=== PATIENT | male | born 1945 | race Two or more races ===

== ENCOUNTER 2017-06-24 13:09 | Inpatient (IN) | payer MEDICARE ==
[2017-06-24] VITALS (10 sets, daily range): BP systolic 138–156; BP diastolic 76–86; PULSE 88–123; RESP 16–20; TEMP 100.1–102.8; O2SAT 94–98
[~2017-06-24] VITALS: Ht 172.7 cm; Wt 75.0 kg
--- NOTE | 2017-06-24 13:25 | PD ---
HPI Chief Complaint: Fall Time Seen by Provider: 13:24 Travel History International Travel<30 days: No Contact w/Intl Traveler<30days: No Traveled to known affect area: No History of Present Illness HPI 72-year-old male came to the emergency room with history of recurrent falls in past 4-6 hours. Patient says that he was at the park when he felt weak and fell. He was able to slowly get up and then drive himself back home. Once he got out of the car he fell again. This time the family members were staying with him noticed that he was on the floor and brought him in. And then just prior to coming in he fell again. Patient says he does not lose his consciousness. He just feels very weak and falls. This has not happened to him before. Patient thinks that this is because of high blood sugar although upon asking patient says his blood sugar was 118. Patient had slightly elevated temperature in triage. He says he has been coughing since yesterday. There has been some sick members in the family that he has had contact with. No history of vomiting or diarrhea. When he fell the first time he landed on his right hand and that swollen and hurting. Patient denies of any chest pain. No history of head injury PFSH Past Medical History Narrative Medical List of his past medical, surgical, social and family history is reviewed from the nursing note. Hx Anticoagulant Therapy: Yes Social History Tobacco Use: No Allergies-Medications (Allergen,Severity, Reaction): Coded Allergies: No Known Allergies (Verified Allergy, Unknown, 06/24/17) Comments no known drug allergies Reported Meds & Prescriptions Reported Meds & Active Scripts Active Reported Tradjenta (Linagliptin) 5 Mg Tab 5 Mg PO DAILY Atorvastatin (Atorvastatin Calcium) 20 Mg Tab 20 Mg PO HS Amlodipine (Amlodipine Besylate) 10 Mg Tab 10 Mg PO DAILY Benazepril (Benazepril HCl) 20 Mg Tab 20 Mg PO DAILY Metformin (Metformin HCl) 1,000 Mg Tab 1,000 Mg PO BIDPC Narrative Medication List of his home medications reviewed from the nursing note. Review of Systems Except as stated in HPI: all other systems reviewed are Neg Physical Exam Narrative GENERAL: Awake, alert, moderate distress, slightly lethargic SKIN: Focused skin assessment warm/dry. Right hand swollen over the fifth metacarpal area and tender HEAD: Atraumatic. Normocephalic. EYES: Pupils equal and round. No scleral icterus. No injection or drainage. ENT: No nasal bleeding or discharge. Mucous membranes pink and moist. NECK: Trachea midline. No JVD. CARDIOVASCULAR: Regular rate and rhythm. No murmur appreciated. RESPIRATORY: No accessory muscle use. Coarse crackles on the left lung area. GASTROINTESTINAL: Abdomen soft, non-tender, nondistended. Hepatic and splenic margins not palpable. MUSCULOSKELETAL: No obvious deformities. No clubbing. No cyanosis. No edema. NEUROLOGICAL: Awake and alert but slightly lethargic. No obvious cranial nerve deficits. Motor grossly within normal limits. Normal speech. PSYCHIATRIC: Appropriate mood and affect; insight and judgment normal. Data Data Last Documented VS Orders Orders Sepsis Workup Initiated (06/24/17 ) Complete Blood Count With Diff (06/24/17 13:39) Comprehensive Metabolic Panel (06/24/17 13:39) Lactic Acid Sepsis Protocol (06/24/17 13:39) Urinalysis - C+S If Indicated (06/24/17 13:39) Influenzae A/B Antigen (06/24/17 13:39) Blood Culture (06/24/17 13:39) Chest, Single Ap (06/24/17 13:39) Blood Glucose (06/24/17 13:39) Ecg Monitoring (06/24/17 13:39) Iv Access Insert/Monitor (06/24/17 13:39) Oximetry (06/24/17 13:39) Oxygen Administration (06/24/17 13:39) Ct Brain W/O Iv Contrast(Rout) (06/24/17 13:39) Sodium Chlor 0.9% 1000 Ml Inj (Ns 1000 M (06/24/17 13:39) Sodium Chlor 0.9% 1000 Ml Inj (Ns 1000 M (06/24/17 13:39) Sodium Chlor 0.9% 1000 Ml Inj (Ns 1000 M (06/24/17 13:39) Hand, Complete ([id number]) (06/24/17 ) Albuterol Neb (Albuterol Neb) (06/24/17 15:15) Support Splint (06/24/17 15:08) Piperacil-Tazo 4.5 Gm Premix (Zosyn 4.5 (06/24/17 15:15) Vancomycin Inj (Vancomycin Inj) (06/24/17 15:15) Ct Thorax/ Chest Wo Iv Contras (06/24/17 ) Admit Order (Ed Use Only) (06/24/17 16:50) Labs Laboratory Tests Test 06/24/17 14:30 06/24/17 14:45 White Blood Count 8.4 TH/MM3 Red Blood Count 5.06 MIL/MM3 Hemoglobin 14.4 GM/DL Hematocrit 43.9 % Mean Corpuscular Volume 86.7 FL Mean Corpuscular Hemoglobin 28.4 PG Mean Corpuscular Hemoglobin Concent 32.8 % Red Cell Distribution Width 12.9 % Platelet Count 201 TH/MM3 Mean Platelet Volume 7.7 FL Neutrophils (%) (Auto) 84.6 % Lymphocytes (%) (Auto) 5.4 % Monocytes (%) (Auto) 9.3 % Eosinophils (%) (Auto) 0.3 % Basophils (%) (Auto) 0.4 % Neutrophils # (Auto) 7.1 TH/MM3 Lymphocytes # (Auto) 0.5 TH/MM3 Monocytes # (Auto) 0.8 TH/MM3 Eosinophils # (Auto) 0.0 TH/MM3 Basophils # (Auto) 0.0 TH/MM3 CBC Comment DIFF FINAL Differential Comment Blood Urea Nitrogen 15 MG/DL Creatinine 1.00 MG/DL Random Glucose 156 MG/DL Total Protein 8.7 GM/DL Albumin 3.9 GM/DL Calcium Level 9.0 MG/DL Alkaline Phosphatase 70 U/L Aspartate Amino Transf (AST/SGOT) 17 U/L Alanine Aminotransferase (ALT/SGPT) 20 U/L Total Bilirubin 0.3 MG/DL Sodium Level 135 MEQ/L Potassium Level 3.8 MEQ/L Chloride Level 104 MEQ/L Carbon Dioxide Level 21.7 MEQ/L Anion Gap 9 MEQ/L Estimat Glomerular Filtration Rate 73 ML/MIN Lactic Acid Level 2.2 mmol/L Urine Collection Type CATH Urine Color YELLOW Urine Turbidity CLEAR Urine pH 5.5 Urine Specific [place] 1.019 Urine Protein 30 mg/dL Urine Glucose (UA) 100 mg/dL Urine Ketones TRACE mg/dL Urine Occult Blood MOD Urine Nitrite NEG Urine Bilirubin NEG Urine Leukocyte Esterase NEG Urine RBC 0-3 /hpf Urine Squamous Epithelial Cells 0-5 /hpf Urine Amorphous Sediment FEW Microscopic Urinalysis Comment CATH-CULT NOT IND Urine Collection Time 1445 MDM Medical Decision Making Medical Screen Exam Complete: Yes Emergency Medical Condition: Yes Medical Record Reviewed: Yes Differential Diagnosis Sepsis, dehydration, abnormal electrolytes, pneumonia, UTI Narrative Course 4:26 PM blood test results are back and patient's lactic acid is elevated. CT scan of the head was negative. Chest x-ray showed some left apical density in the radiologist recommended a CT scan. I ordered a CT scan which is done but waiting to be read. Patient has been given IV Zosyn and vancomycin. I put a call out for the hospitalist to admit him. Critical Care Narrative Aggregate critical care time was 30 minutes. Time to perform other separately billable procedures was not included in the critical care time. My time did not include minutes spent treating any other patients simultaneously or on activities that did not directly contribute to the patient's treatment. The services I provided to this patient were to treat and/or prevent clinically significant deterioration that could result in: Sepsis, sepsis protocol I provided critical care services requiring my management, as noted below: Chart data review, documentation time, medication orders and management, vital sign assessments/reviewing monitor data, ordering and reviewing lab tests, ordering and interpreting/reviewing x-rays and diagnostic studies, care of the patient and discussion of the patient with the admitting physicians. Procedures EKG Prior to Arrival: No Diagnosis Primary Impression: Altered mental status Qualified Codes: R40.0 - Somnolence Additional Impressions: Sepsis Qualified Codes: A41.9 - Sepsis, unspecified organism Fall Qualified Codes: W19.XXXA - Unspecified fall, initial encounter Metacarpal bone fracture Qualified Codes: S62.356A - Nondisplaced fracture of shaft of fifth metacarpal bone, right hand, initial encounter for closed fracture Lung mass Admitting Information Admitting Physician Requests: Admit Scripts Hydrocodone/Acetaminophen (Hydrocodone-Acetamin 5-325 mg) 5 Mg-325 Mg Tablet 1 TAB PO Q6H Y for moderate and severe pain, #20 TAB 0 Refills Prov: Brynn Palmer MD 06/27/17 Randy Rome MD Jun 24, 2017 13:24
[2017-06-24] MEDS ORDERED: SODIUM CHLOR 0.9% 1000 ML INJ 400 ML IV ONE (13:39)
[2017-06-24] MEDS ORDERED: SODIUM CHLOR 0.9% 1000 ML INJ 1,000 ML IV ONE ×2 (13:39)
[2017-06-24] MEDS ORDERED: BLOOD PRESSURE PO (13:43)
[2017-06-24] MEDS ORDERED: METF1000 PO (13:43)
[2017-06-24] MEDS ORDERED: AMLO10TA2 PO (13:54)
[2017-06-24] MEDS ORDERED: BENA20TA PO (13:54)
[2017-06-24] MEDS ORDERED: ATOR20TA15 PO (13:54)
[2017-06-24] MEDS ORDERED: TRAD5TAB PO (13:55)
--- NOTE | 2017-06-24 14:24 | RADRPT ---
EXAM DATE/TIME: 06/24/2017 13:53 [facility] COMPARISON: No previous studies available for comparison. INDICATIONS : Altered mental status. 3 falls today. Unsteady gate. RADIATION DOSE: 59.65 CTDIvol (mGy) ; Patient motion MEDICAL HISTORY : Hypertension. Diabetes mellitus type 2. SURGICAL HISTORY : Appendectomy. ENCOUNTER: Initial ACUITY: 1 day PAIN SCALE: 0/10 LOCATION: cranial TECHNIQUE: Multiple contiguous axial images were obtained of the head. Using automated exposure control and adj ustment of the mA and/or kV according to patient size, radiation dose was kept as low as reasonably a chievable to obtain optimal diagnostic quality images. DICOM format image data is available electro nically for review and comparison. FINDINGS: CEREBRUM: The ventricles and cortical sulci are mildly widened. There is mild decreased density of the short wh ite matter especially the frontal lobes. No evidence of midline shift, mass lesion, hemorrhage or ac christopher infarction. No extra-axial fluid collections are seen. POSTERIOR FOSSA: The cerebellum and brainstem are intact. The 4th ventricle is midline. The cerebellopontine angle i s unremarkable. EXTRACRANIAL: The visualized portion of the orbits is intact. SKULL: The calvaria is intact. No evidence of skull fracture. CONCLUSION: 1. No acute abnormality seen. 2. Age-related atrophy and suspected mild small vessel ischemic change in the white matter. Jules Warren MD on June 24, 2017 at 14:20 Board Certified Radiologist. This report was verified electronically.
[2017-06-24 14:44] LABS: AUTOMATED NEUTROPHIL # 7.1 TH/MM3 (1.8-7.7); BASOPHIL % 0.4 % (0.0-2.0); EOSINOPHIL % 0.3 % (0.0-4.0); HEMATOCRIT 43.9 % (39.0-51.0); HEMOGLOBIN 14.4 GM/DL (13.0-17.0); LYMPH % 5.4 % (9.0-44.0); LYMPHOCYTE # 0.5 TH/MM3 (1.0-4.8); MEAN CELL VOLUME 86.7 FL (80.0-100.0); MEAN CORPUSCULAR HEMOGLOBIN 28.4 PG (27.0-34.0); MEAN CORPUSCULAR HGB CONC 32.8 % (32.0-36.0); MEAN PLATELET VOLUME 7.7 FL (7.0-11.0); MONO % 9.3 % (0.0-8.0); MONOCYTE # 0.8 TH/MM3 (0-0.9); NEUT % 84.6 % (16.0-70.0); PLATELET COUNT 201 TH/MM3 (150-450); RED BLOOD COUNT 5.06 MIL/MM3 (4.50-5.90); RED CELL DISTRIBUTION WIDTH 12.9 % (11.6-17.2); WHITE BLOOD COUNT 8.4 TH/MM3 (4.0-11.0)
--- NOTE | 2017-06-24 14:51 | RADRPT ---
EXAM DATE/TIME: 06/24/2017 14:07 [facility] COMPARISON: No previous studies available for comparison. INDICATIONS : Cough, frequent falls today. MEDICAL HISTORY : Hypertension. Diabetes mellitus type II. SURGICAL HISTORY : Appendectomy. ENCOUNTER: Initial ACUITY: 2 days PAIN SCORE: 0/10 LOCATION: Bilateral chest FINDINGS: The heart size is normal. The lungs are free of focal consolidation. There is a possible mass seen in the right upper lung. No effusion is seen. CONCLUSION: 1. No acute abnormality is seen. 2. Possible mass in the right upper lung. This could be further evaluated with a noncontrast CT exami nation of the chest. Jules Warren MD on June 24, 2017 at 14:48 Board Certified Radiologist. This report was verified electronically.
--- NOTE | 2017-06-24 14:52 | RADRPT ---
EXAM DATE/TIME: 06/24/2017 14:07 [facility] COMPARISON: No previous studies available for comparison. INDICATIONS : Right hand pain after falling today. MEDICAL HISTORY : Hypertension. Diabetes mellitus type II. SURGICAL HISTORY : Appendectomy. ENCOUNTER: Initial ACUITY: 1 day PAIN SCORE: 7/10 LOCATION: Right top of hand. FINDINGS: There is a fracture at the proximal aspect of the fifth metacarpal. No other fracture is seen. The mima alejandra appear osteopenic. CONCLUSION: Fifth metacarpal fracture. Jules Warren MD on June 24, 2017 at 14:49 Board Certified Radiologist. This report was verified electronically.
[2017-06-24 14:53] LABS: CHLORIDE 104 MEQ/L (98-107); SODIUM (NA) 135 MEQ/L (136-145)
[2017-06-24 14:57] LABS: ALBUMIN 3.9 GM/DL (3.4-5.0); BICARBONATE 21.7 MEQ/L (21.0-32.0); BLOOD UREA NITROGEN 15 MG/DL (7-18); GLUCOSE,RANDOM 156 MG/DL (74-106)
[2017-06-24 15:00] LABS: ALT (GPT) 20 U/L (12-78); AST (GOT) 17 U/L (15-37); GLOMERULAR FILTRATION RATE 73 ML/MIN (>89)
[2017-06-24 15:01] LABS: TOTAL BILIRUBIN ADULT 0.3 MG/DL (0.2-1.0); TOTAL PROTEIN 8.7 GM/DL (6.4-8.2)
[2017-06-24 15:02] LABS: LACTIC ACID SEPSIS PROTOCOL 2.2 mmol/L (0.4-2.0)
[2017-06-24 15:03] LABS: ALKALINE PHOSPHATASE 70 U/L (45-117)
[2017-06-24 15:12] LABS: BILIRUBIN, URINE NEG (NEG); BLOOD, URINE MOD (NEG); GLUCOSE,URINE 100 mg/dL (NEG); KETONE, URINE TRACE mg/dL (NEG); NITRITE,URINE NEG (NEG); PH, URINE 5.5 (5.0-8.5); URINE LEUKOCYTE ESTERASE NEG (NEG)
[2017-06-24] MEDS ORDERED: VANCOMYCIN INJ 1,000 MG in SODIUM CHLOR 0.9% 250 ML INJ 250 ML IV ONE (15:15)
[2017-06-24] MEDS ORDERED: RESP: ALBUTEROL 2.5 MG/3 ML NEB (SCH) NEB ONE (15:15)
[2017-06-24] MEDS ORDERED: PIPERACIL-TAZO 4.5 GM PREMIX 100 ML IV ONE (15:15)
[2017-06-24 15:17] LABS: URINE COLOR YELLOW (YELLW/STRAW)
[2017-06-24 15:18] LABS: AMORPHOUS SEDIMENT, URINE FEW; RBC, URINE 0-3 /hpf (0-3); SQUAMOUS EPITHELIAL CELL URINE 0-5 /hpf (0-5)
--- NOTE | 2017-06-24 16:27 | RADRPT ---
EXAM DATE/TIME: 06/24/2017 15:48 [facility] COMPARISON: 3 days PAIN SCALE: 4/10 LOCATION: chest TECHNIQUE: Volumetric scanning of the chest was performed. Using automated exposure control and adjustment of t he mA and/or kV according to patient size, radiation dose was kept as low as reasonably achievable to obtain optimal diagnostic quality images. DICOM format image data is available electronically for r eview and comparison. Follow-up recommendations for detected pulmonary nodules are based at a minimum on nodule size and pa tient risk factors according to Fleischner Society Guidelines. FINDINGS: There is an approximate 1.3 cm spiculated mass in right upper lobe in the apex suspicious for maligna ncy. Coronary artery calcifications are seen typically seen with CAD and need to be evaluated clinica lly. Approximate 9 mm spontaneously dense nodule is present in the left kidney probably complicated c ysts. There is mild thoracic scoliosis convexity towards the right. There is no pleural effusion. No appreciable pathological adenopathy is seen within the mediastinum. There are old healed rib fractur es in the right lower chest. CONCLUSION: Right upper lung nodule suspicious for malignancy. Roque Patel MD on June 24, 2017 at 16:21 Board Certified Radiologist. This report was verified electronically.
[2017-06-24] MEDS ORDERED: SODIUM CHLORIDE 0.9% FLUSH 10 ML FLUSH IV FLUSH PRN (17:45)
[2017-06-24] MEDS ORDERED: RESP: ALBUTEROL 2.5 MG/IPRATROPIUM 0.5 MG NEB (PRN) INH (17:45)
[2017-06-24] MEDS ORDERED: ENOXAPARIN SODIUM 40 MG/0.4 ML SYRINGE SQ SCH (18:00)
[2017-06-24] MEDS ORDERED: AZITHROMYCIN INJ 500 MG in SODIUM CHLOR 0.9% 250 ML INJ 250 ML IV SCH (18:00)
[2017-06-24] MEDS ORDERED: GLUCAGON 1 MG/ML VIAL OTHER PRN (18:15)
[2017-06-24] MEDS ORDERED: DEXTROSE 50% IN WATER 50 ML VIAL(D50) IV PUSH PRN (18:15)
--- NOTE | 2017-06-24 18:38 | HHI.HP ---
HPI Service [facility] Primary Care Physician No Primary Care Physician Admission Diagnosis sepsis, fall, metacarpal fracture, lung mass Diagnoses: Chief Complaint: Fall at home and new fever Travel History International Travel<30 Days: No Contact w/Intl Traveler <30 Da: No Traveled to Known Affected Are: No History of Present Illness This patient is a 72-year-old gentleman with diabetes and hypertension. He does not have a primary doctor. Apparently today he was at the park walking his dog and fell. He got up in complaining of some hand pain and drove himself home. He went home and fell again, his called his niece who came and they noticed that he was still weak and wobbly. He did not lose consciousness and had no chest pain or prodromal symptoms. She just felt acutely and severely weak and is giving out. Patient seen in the hospital here with shuffling gait which is unusual for the patient, weak and fatigued. He says that he has not had any recent travel and has not hit his head. He's never had this before. We 'll a fall earlier was so dramatic that he did end up with metacarpal fracture which has since been splinted by the ER Deid[facility]. On arrival in emergency room he is febrile with tachycardia and signs of sepsis. He has been treated empirically with antibiotics as well as a recommendation for evaluation of a new right upper lobe malignancy with nodule on CT. Review of Systems Constitutional: COMPLAINS OF: Fatigue, Fever, Chills Endocrine: DENIES: Heat/cold intolerance, Polydipsia, Polyuria, Polyphagia Eyes: DENIES: Blurred vision, Diplopia, Eye inflammation, Eye pain, Vision loss , Photosensitivity, Double Vision Ears, nose, mouth, throat: DENIES: Tinnitus, Hearing loss, Vertigo, Nasal discharge, Oral lesions, Throat pain, Hoarseness, Ear Pain, Running Nose, Epistaxis, Sinus Pain, Toothache, Odynophagia Respiratory: DENIES: Apneas, Cough, Snoring, Wheezing, Hemoptysis, Sputum production, Shortness of breath Cardiovascular: DENIES: Chest pain, Palpitations, Syncope, Dyspnea on Exertion , PND, Lower Extremity Edema, Orthopnea, Claudication Gastrointestinal: DENIES: Abdominal pain, Black stools, Bloody stools, Constipation, Diarrhea, Nausea, Vomiting, Difficulty Swallowing, Anorexia Genitourinary: DENIES: Sexual dysfunction, Urinary frequency, Urinary incontinence, Urgency, Hematuria, Dysuria, Nocturia, Penile Discharge, Testicular Pain, Testicular Swelling Musculoskeletal: DENIES: Joint pain, Muscle aches, Stiffness, Joint Swelling, Back pain, Neck pain Integumentary: DENIES: Abnormal pigmentation, Nail changes, Pruritus, Rash Hematologic/lymphatic: DENIES: Bruising, Lymphadenopathy Immunologic/allergic: DENIES: Eczema, Urticaria Neurologic: COMPLAINS OF: Abnormal gait, DENIES: Headache, Localized weakness, Paresthesias, Seizures, Speech Problems, Tremor, Poor Balance Psychiatric: DENIES: Anxiety, Confusion, Mood changes, Depression, Hallucinations, Agitation, Suicidal Ideation, Homicidal Ideation, Delusions Except as stated in HPI: all other systems reviewed are Neg Past Family Social History Past Medical History Diabetes Hypertension Hyperlipidemia Past Surgical History Appendectomy Reported Medications Reviewed in the EMR Allergies: Coded Allergies: No Known Allergies (Verified Allergy, Unknown, 06/24/17) Active Ordered Medications Reviewed in the EMR Family History Family history of hypertension Social History No tobacco or alcohol dependency, lives with his , very independent Physical Exam Vital Signs Vital Signs Date Time Temp Pulse Resp B/P (MAP) Pulse Ox O2 Delivery O2 Flow Rate FiO2 06/24/17 17:44 96 21 06/24/17 13:55 100.1 06/24/17 13:44 96 Room Air 06/24/17 13:44 18 96 Room Air 06/24/17 13:44 Room Air 06/24/17 13:14 100.1 123 16 150/86 (107) 95 Physical Exam GENERAL: This is a frail gentleman who is weak and appears stated age SKIN: No rashes, ecchymoses or lesions. Cool and dry. HEAD: Atraumatic. Normocephalic. No temporal or scalp tenderness. EYES: Pupils equal round and reactive. Extraocular motions intact. No scleral icterus. No injection or drainage. ENT: Nose without bleeding, purulent drainage or septal hematoma. Throat without erythema, tonsillar hypertrophy or exudate. Uvula midline. Airway patent. NECK: Trachea midline. No JVD or lymphadenopathy. Supple, nontender, no meningeal signs. CARDIOVASCULAR: Regular rate and rhythm without murmurs, gallops, or rubs. RESPIRATORY: Clear to auscultation. Breath sounds equal bilaterally. No wheezes , rales, or rhonchi. GASTROINTESTINAL: Abdomen soft, non-tender, nondistended. No hepato-splenomegaly , or palpable masses. No guarding. MUSCULOSKELETAL: Show full gait, Extremities without clubbing, cyanosis, or edema. No joint tenderness, effusion, or edema noted. No calf tenderness. Negative Homans sign bilaterally. NEUROLOGICAL: Awake and alert. Cranial nerves II through XII intact. Motor and sensory grossly within normal limits. Five out of 5 muscle strength in all muscle groups. Normal speech. Laboratory Laboratory Tests Test 06/24/17 14:30 06/24/17 14:45 06/24/17 17:15 White Blood Count 8.4 Red Blood Count 5.06 Hemoglobin 14.4 Hematocrit 43.9 Mean Corpuscular Volume 86.7 Mean Corpuscular Hemoglobin 28.4 Mean Corpuscular Hemoglobin Concent 32.8 Red Cell Distribution Width 12.9 Platelet Count 201 Mean Platelet Volume 7.7 Neutrophils (%) (Auto) 84.6 Lymphocytes (%) (Auto) 5.4 Monocytes (%) (Auto) 9.3 Eosinophils (%) (Auto) 0.3 Basophils (%) (Auto) 0.4 Neutrophils # (Auto) 7.1 Lymphocytes # (Auto) 0.5 Monocytes # (Auto) 0.8 Eosinophils # (Auto) 0.0 Basophils # (Auto) 0.0 CBC Comment DIFF FINAL Differential Comment Blood Urea Nitrogen 15 Creatinine 1.00 Random Glucose 156 Total Protein 8.7 Albumin 3.9 Calcium Level 9.0 Alkaline Phosphatase 70 Aspartate Amino Transf (AST/SGOT) 17 Alanine Aminotransferase (ALT/SGPT) 20 Total Bilirubin 0.3 Sodium Level 135 Potassium Level 3.8 Chloride Level 104 Carbon Dioxide Level 21.7 Anion Gap 9 Estimat Glomerular Filtration Rate 73 Lactic Acid Level 2.2 2.0 Urine Collection Type CATH Urine Color YELLOW Urine Turbidity CLEAR Urine pH 5.5 Urine Specific [place] 1.019 Urine Protein 30 Urine Glucose (UA) 100 Urine Ketones TRACE Urine Occult Blood MOD Urine Nitrite NEG Urine Bilirubin NEG Urine Leukocyte Esterase NEG Urine RBC 0-3 Urine Squamous Epithelial Cells 0-5 Urine Amorphous Sediment FEW Microscopic Urinalysis Comment CATH-CULT NOT IND Urine Collection Time 1445 Date/Time Source Procedure Growth Status 06/24/17 14:35 Blood Peripheral Aerobic Blood Culture Pending Received 06/24/17 14:35 Blood Peripheral Anaerobic Blood Culture Pending Received 06/24/17 14:35 Nasal Aspirate Influenza Types A,B Antigen (KYLEIGH) - Final NEGATIVE FOR FLU A AND B ANTIGEN.... Complete Result Diagram: 06/24/17 1430 06/24/17 1430 Imaging Last [address] 06/24/17 1339 Signed Impressions: Service Date/Time: Saturday, June 24, 2017 13:53 - CONCLUSION: 1. No acute abnormality seen. 2. Age-related atrophy and suspected mild small vessel ischemic change in the white matter. Jules Warren MD Chest X-Ray 06/24/17 1339 Signed Impressions: Service Date/Time: Saturday, June 24, 2017 14:07 - CONCLUSION: 1. No acute abnormality is seen. 2. Possible mass in the right upper lung. This could be further evaluated with a noncontrast CT examination of the chest. Jules Warren MD Hand X-Ray 06/24/17 0000 Signed Impressions: Service Date/Time: Saturday, June 24, 2017 14:07 - CONCLUSION: Fifth metacarpal fracture. Jules Warren MD Chest CT 06/24/17 0000 Signed Impressions: Service Date/Time: Saturday, June 24, 2017 15:48 - CONCLUSION: Right upper lung nodule suspicious for malignancy. Roque Patel MD Septic Shock Reassessment Septic shock perfusion: reassessment completed Caprini VTE Risk Assessment Caprini VTE Risk Assessment: Mod/High Risk (score >= 2) Caprini Risk Assessment Model Point Value = 1 Point Value = 2 Point Value = 3 Point Value = 5 Age 41-60 Minor surgery BMI > 25 kg/m2 Swollen legs Varicose veins or History of unexplained or recurrent spontaneous Oral contraceptives or hormone replacement Sepsis (< 1 month) Serious lung disease, including pneumonia (< 1 month) Abnormal pulmonary function Acute myocardial infarction Congestive heart failure (< 1 month) History of inflammatory bowel disease Medical patient at bed rest Age 61-74 Arthroscopic surgery Major open surgery (> 45 min) Laparoscopic surgery (> 45 min) Malignancy Confined to bed (> 72 hours) Immobilizing plaster cast Central venous access Age >= 75 History of VTE Family history of VTE Factor V Leiden Prothrombin [id number] Lupus anticoagulant Anticardiolipin antibodies Elevated serum homocysteine Heparin-induced thrombocytopenia Other congenital or acquired thrombophilia Stroke (< 1 month) Elective arthroplasty Hip, pelvis, or leg fracture Acute spinal cord injury (< 1 month) Prophylaxis Regimen Total Risk Factor Score Risk Level Prophylaxis Regimen 0-1 Low Early ambulation 2 Moderate Order ONE of the following: *Sequential Compression Device (SCD) *Heparin 5000 units SQ BID 3-4 Higher Order ONE of the following medications: *Heparin 5000 units SQ TID *Enoxaparin/Lovenox 40 mg SQ daily (WT < 150 kg, CrCl > 30 mL/min) *Enoxaparin/Lovenox 30 mg SQ daily (WT < 150 kg, CrCl > 10-29 mL/min) *Enoxaparin/Lovenox 30 mg SQ BID (WT < 150 kg, CrCl > 30 mL/min) AND/OR *Sequential Compression Device (SCD) 5 or more Highest Order ONE of the following medications: *Heparin 5000 units SQ TID (Preferred with Epidurals) *Enoxaparin/Lovenox 40 mg SQ daily (WT < 150 kg, CrCl > 30 mL/min) *Enoxaparin/Lovenox 30 mg SQ daily (WT < 150 kg, CrCl > 10-29 mL/min) *Enoxaparin/Lovenox 30 mg SQ BID (WT < 150 kg, CrCl > 30 mL/min) AND *Sequential Compression Device (SCD) Assessment and Plan Problem List: (1) Fall ICD Code: W19.XXXA - Unspecified fall, initial encounter Status: Acute Plan: With acute gait abnormality, rule out stroke, continue treatment for sepsis MRI pending CT of the head unremarkable (2) Lung mass ICD Code: R91.8 - Other nonspecific abnormal finding of lung field Status: Acute Plan: New per patient, workup in progress (3) Sepsis ICD Code: A41.9 - Sepsis, unspecified organism Status: Acute Plan: Possibly from pneumonia, etiology unclear, continue empiric azithromycin and Rocephin Urine negative, blood cultures pending (4) Metacarpal bone fracture ICD Code: S62.309A - Unspecified fracture of unspecified metacarpal bone, initial encounter for closed fracture Status: Acute Plan: Continue supportive care with splint, follow up with outpatient hand surgery Physician Certification 2 Midnight Certification Type: Admission for Inpatient Services Order for Inpatient Services The services are ordered in accordance with Medicare regulations or non- Medicare payer requirements, as applicable. In the case of services not specified as inpatient-only, they are appropriately provided as inpatient services in accordance with the 2-midnight benchmark. Estimated LOS (days): 4 4 days is the estimated time the patient will need to remain in the hospital, assuming treatment plan goals are met and no additional complications. Post-Hospital Plan: Not yet determined Problem Qualifiers (1) Fall: Qualified Codes: W19.XXXA - Unspecified fall, initial encounter (2) Sepsis: Qualified Codes: A41.9 - Sepsis, unspecified organism (3) Metacarpal bone fracture: Qualified Codes: S62.356A - Nondisplaced fracture of shaft of fifth metacarpal bone, right hand, initial encounter for closed fracture Radha Cox MD Jun 24, 2017 18:37
[2017-06-24] MEDS: ACETAMINOPHEN 325 MG TAB PO PRN (18:43)
[2017-06-24] MEDS ORDERED: cefTRIAXone INJ 1,000 MG in SODIUM CHLORIDE 0.9% INJ 100 ML IV SCH (20:00)
[2017-06-24] MEDS ORDERED: ACETAMINOPHEN/HYDROcodone 325 MG/5 MG TAB PO PRN (20:30)
[2017-06-24] MEDS: INSULIN ASPART SUPPLEMENTAL SCALE SQ SCH (21:00)
[2017-06-24] MEDS: ATORVASTATIN 20 MG TAB PO SCH (21:22)
[2017-06-24] MEDS: SODIUM CHLORIDE 0.9% FLUSH 10 ML FLUSH IV FLUSH SCH (21:22)
[2017-06-24] MEDS: ACETAMINOPHEN/HYDROcodone 325 MG/7.5 MG TAB PO PRN (21:23)
[2017-06-25] VITALS: BP 122/79; PULSE 93; RESP 16; TEMP 98.9; O2SAT 92
[2017-06-25 01:30] VITALS: O2SAT 93
[2017-06-25] MEDS: ACETAMINOPHEN/HYDROcodone 325 MG/7.5 MG TAB PO PRN (03:51)
[2017-06-25 05:39] LABS: AUTOMATED NEUTROPHIL # 5.6 TH/MM3 (1.8-7.7); BASOPHIL % 0.3 % (0.0-2.0); EOSINOPHIL % 0.1 % (0.0-4.0); HEMATOCRIT 39.5 % (39.0-51.0); HEMOGLOBIN 13.1 GM/DL (13.0-17.0); LYMPH % 4.4 % (9.0-44.0); LYMPHOCYTE # 0.3 TH/MM3 (1.0-4.8); MEAN CELL VOLUME 86.7 FL (80.0-100.0); MEAN CORPUSCULAR HEMOGLOBIN 28.8 PG (27.0-34.0); MEAN CORPUSCULAR HGB CONC 33.3 % (32.0-36.0); MEAN PLATELET VOLUME 7.9 FL (7.0-11.0); MONO % 8.7 % (0.0-8.0); MONOCYTE # 0.6 TH/MM3 (0-0.9); NEUT % 86.5 % (16.0-70.0); PLATELET COUNT 188 TH/MM3 (150-450); RED BLOOD COUNT 4.56 MIL/MM3 (4.50-5.90); WHITE BLOOD COUNT 6.5 TH/MM3 (4.0-11.0)
[2017-06-25 05:52] LABS: BICARBONATE 21.7 MEQ/L (21.0-32.0); CALCIUM 8.1 MG/DL (8.5-10.1); CREATININE 0.88 MG/DL (0.60-1.30)
[2017-06-25 08:00] VITALS: BP 167/87; PULSE 91; RESP 16; TEMP 98.3; O2SAT 93
[2017-06-25] MEDS ORDERED: BENZOCAINE-MENTHOL (SUGAR FREE) 15 MG-3.6 MG LOZENGE BUCCAL PRN (08:45)
[2017-06-25] MEDS: LISINOPRIL 20 MG TAB PO SCH (08:52)
[2017-06-25] MEDS: SODIUM CHLORIDE 0.9% FLUSH 10 ML FLUSH IV FLUSH SCH ×2 (08:52→20:16)
[2017-06-25] MEDS: INSULIN ASPART SUPPLEMENTAL SCALE SQ SCH ×4 (08:52→20:17)
[2017-06-25] MEDS ORDERED: TRADJENTA 5 MG PO SCH (09:00)
--- NOTE | 2017-06-25 10:55 | HHI.PR ---
Subjective Remarks Patient seen today in follow-up for sepsis, fall and lightheadedness. More confused today. MAXIMUM TEMPERATURE 100.2. Care plan discussed with nursing team Objective Vitals Vital Signs Date Time Temp Pulse Resp B/P (MAP) Pulse Ox O2 Delivery O2 Flow Rate FiO2 06/25/17 08:00 98.3 91 16 167/87 (113) 93 06/25/17 04:51 16 06/25/17 01:30 93 21 06/25/17 00:00 98.9 93 16 122/79 (93) 92 06/24/17 19:43 18 06/24/17 18:40 100.2 119 20 138/84 (102) 96 06/24/17 18:00 84 16 155/82 (106) 98 06/24/17 17:44 96 21 06/24/17 17:15 102.8 99 16 153/82 (105) 94 Room Air 06/24/17 16:15 97 18 155/76 (102) 98 Room Air 06/24/17 15:15 88 16 156/79 (104) 94 Room Air 06/24/17 14:15 92 18 156/76 (102) 98 Room Air 06/24/17 13:55 100.1 06/24/17 13:44 96 Room Air 06/24/17 13:44 18 96 Room Air 06/24/17 13:44 Room Air 06/24/17 13:14 100.1 123 16 150/86 (107) 95 I/O 06/24/17 06/24/17 06/24/17 06/25/17 06/25/17 06/25/17 07:00 15:00 23:00 07:00 15:00 23:00 Intake Total 2850 ml 180 ml Output Total 250 ml Balance 2850 ml 180 ml -250 ml Intake Oral 180 ml IV Total 2850 ml Output Urine Total 250 ml # Voids 3 1 # Bowel Movements 0 Result Diagram: 06/25/177 06/25/17446 Imaging Last Impressions Head CT 06/24/171338 Signed Impressions: Service Date/Time: Saturday, June 24, 2017 13:53 - CONCLUSION: 1. No acute abnormality seen. 2. Age-related atrophy and suspected mild small vessel ischemic change in the white matter. Jules Warren MD Chest X-Ray 06/24/17 1339 Signed Impressions: Service Date/Time: Saturday, June 24, 2017 14:07 - CONCLUSION: 1. No acute abnormality is seen. 2. Possible mass in the right upper lung. This could be further evaluated with a noncontrast CT examination of the chest. Jules Warren MD Hand X-Ray 06/24/17 0000 Signed Impressions: Service Date/Time: Saturday, June 24, 2017 14:07 - CONCLUSION: Fifth metacarpal fracture. Jules Warren MD Chest CT 06/24/17 0000 Signed Impressions: Service Date/Time: Saturday, June 24, 2017 15:48 - CONCLUSION: Right upper lung nodule suspicious for malignancy. Roque Patel MD Objective Remarks GENERAL: This is a well-nourished, weak CARDIOVASCULAR: Regular rate and rhythm without murmurs, gallops, or rubs. RESPIRATORY: Upper respiratory gurgling, no wheezes GASTROINTESTINAL: Abdomen soft, non-tender, nondistended. Normal active bowel sounds MUSCULOSKELETAL: Right arm splint, Extremities without clubbing, cyanosis, or edema. NEURO: Alert & Oriented x4 to person, place, time, situation. Moves all ext x4 but very weak A/P Problem List: (1) Fall ICD Code: W19.XXXA - Unspecified fall, initial encounter Status: Acute Plan: With acute gait abnormality, rule out stroke, continue treatment for sepsis MRI brain pending CT of the head unremarkable (2) Lung mass ICD Code: R91.8 - Other nonspecific abnormal finding of lung field Status: Acute Plan: New per patient, workup in progress pulm consult approximate 1.3 cm spiculated mass in right upper lobe,may be incidental no tobacco or hx of ca (3) Sepsis ICD Code: A41.9 - Sepsis, unspecified organism Status: Acute Plan: Possibly from pneumonia (although unclear), etiology unclear, continue empiric azithromycin and Rocephin Urine negative, blood cultures pending CSF, EEG pending Neuro eval (4) Metacarpal bone fracture ICD Code: S62.309A - Unspecified fracture of unspecified metacarpal bone, initial encounter for closed fracture Status: Acute Plan: Continue supportive care with fiberglass splint, follow up with outpatient hand surgery (5) Metabolic encephalopathy ICD Code: G93.41 - Metabolic encephalopathy Plan: Patient appears to be septic follow-up from an unclear source, medications reviewed Antibiotic suggested for possible meningitis Problem Qualifiers (1) Fall: Qualified Codes: W19.XXXA - Unspecified fall, initial encounter (2) Sepsis: Qualified Codes: A41.9 - Sepsis, unspecified organism (3) Metacarpal bone fracture: Qualified Codes: S62.356A - Nondisplaced fracture of shaft of fifth metacarpal bone, right hand, initial encounter for closed fracture Radha Cox MD Jun 25, 2017 10:55
[2017-06-25] MEDS ORDERED: VANCOMYCIN INJ 1,250 MG in SODIUM CHLOR 0.9% 250 ML INJ 250 ML IV SCH (11:00)
[2017-06-25] MEDS ORDERED: Vancomycin Consult Pharmacy 1 EA OTHER SCH (11:00)
[2017-06-25] MEDS: cefTRIAXone INJ 1,000 MG in SODIUM CHLORIDE 0.9% INJ 100 ML IV SCH ×2 (11:53→23:06)
[2017-06-25 12:00] VITALS: BP 157/88; PULSE 108; RESP 20; TEMP 97.4; O2SAT 93
[2017-06-25 12:09] LABS: PROTHROMBIN TIME - PATIENT 10.6 SEC (9.8-11.6)
[2017-06-25] MEDS: VANCOMYCIN 1,000 MG/NS 250 ML IV SCH ×2 (12:52)
--- NOTE | 2017-06-25 14:32 | MB ---
cc: PATY CASTILLO M.D. DATE OF CONSULTATION 06/25/2017 REASON FOR CONSULTATION A 72-year-old Occitan-speaking man with a history of falls and lethargy and he is apparently running a fever as well. HISTORY OF PRESENT ILLNESS The patient was walking his dog yesterday, fell, and was able to get up and drive back home. Apparently at home he fell again and was very weak. He was brought to the hospital. In the hospital his family tells me that he has been having some wobbly and shuffling gait lately. No apparent confusion and no blackouts. They deny seizures and stroke. He is diabetic and also has a history of hypertension. He takes baby aspirin along with diabetes and blood pressure medications. He has been coughing up in the past few days. NEUROLOGICAL EXAMINATION Exam showed the patient to be awake, somewhat lethargic, coughing intermittently and obviously congested. He follows commands. He is oriented in a gross manner as he is speaking with difficulty. He appears to be dysarthric with generalized weakness and encephalopathy. He is moving all four extremities grossly equally. The right distal upper extremity is immobilized but he is moving the fingers one by one. He has some reflexes present at the elbows and knees, absent at the ankles and plantar response is probably flexor. IMAGING CT brain was negative for acute process. LABORATORY CBC is showing normal white count, hemoglobin and platelets also normal. Chemistry is showing sodium 135 yesterday, today 137. Potassium 3.8 yesterday. Blood sugar yesterday 156, BUN and creatinine normal. ASSESSMENT AND RECOMMENDATIONS resumed sepsis. He is encephalopathic with some lethargy and generalized weakness. There is somewhat dysarthric speech. He is showing no focal findings on the neurologic exam. He is scheduled for an MRI brain. There is a plan for a lumbar puncture. I doubt a meningoencephalitis type of process, but would agree with the lumbar puncture. Currently on ceftriaxone, vancomycin and Zithromax. I will follow the neurological course. Thank you for asking us to assist in his care. MD JENNIFER Cruz/MILA /1:25 PM /2:00 PM
--- NOTE | 2017-06-25 16:02 | RADRPT ---
EXAM DATE/TIME: 06/25/2017 14:14 [facility] COMPARISON: No previous studies available for comparison. INDICATIONS : CVA. Frequent falls. Unsteady gait. MEDICAL HISTORY : Hypertension. Diabetes mellitus type 2. SURGICAL HISTORY : None. ENCOUNTER: Subsequent ACUITY: 2 day PAIN SCORE: 0/10 LOCATION: head. TECHNIQUE: Multiplanar, multisequence MRI of the brain was performed without contrast. FINDINGS: MRI of the brain is performed in sagittal, axial and coronal planes. The craniocervical junction and midline structures are unremarkable. Diffusion weighted images demonstrate no abnormality. There is n o evidence of acute cortical infarction, acute hemorrhage, mass effect or midline shift is seen. Ther e is periventricular hyperintensity on the T2 weighted images consistent with small vessel vascular d isease slightly more than expected in a patient of this age. Posterior fossa structures are unremarka ble. CONCLUSION: 1. No evidence of acute intracranial pathology. Chronic ischemic changes as above. Arthur Johnson MD on June 25, 2017 at 15:59 Board Certified Radiologist. This report was verified electronically.
[2017-06-25 16:31] VITALS: BP 166/94; PULSE 102; RESP 19; TEMP 98.7; O2SAT 92
[2017-06-25] MEDS: AZITHROMYCIN 250 MG TAB PO SCH (18:15)
--- NOTE | 2017-06-25 19:01 | MB ---
cc: ROHAN ALFORD DATE OF CONSULTATION 06/25/[address] Radha Cox REASON FOR CONSULTATION Evaluation of lung nodule. HISTORY OF THE PRESENT ILLNESS Mr. Cancino is a 72-year-old male with a history of hypertension, diabetes mellitus. The patient has a history of fall. He said he fell twice. He went to walk his dog and fell down but no loss of consciousness. He was able to get up and drive home. He presented to [facility] with a fall. He had a workup done. He had a CT scan of the chest done which showed that he has a right upper lobe lung nodule measuring 1.3 cm, spiculated, concerning for malignancy. He had a MRI of the brain done which showed no evidence of acute intracranial pathology. He has chronic ischemic changes. The patient is being seen by Dr. Nicholas Saldivar and he is going to go for a spinal tap. PAST MEDICAL HISTORY 1. Hypertension. 2. Diabetes mellitus. MEDICATIONS He is currently takin. Vancomycin IV. 2. Rocephin 1 gram q.12 h. 3. Amlodipine 10 mg. 4. Lisinopril 20 mg a day. 5. Cepacol lozenges. ALLERGIES NO KNOWN DRUG ALLERGIES. SOCIAL HISTORY He is . 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 No history of smoking or alcoholism. He has no children. His nephew and nieces are at the bedside. REVIEW OF SYSTEMS Normally he is up, around and active and takes care of his and himself. No seizure, stroke. No DVT or pulmonary embolism. No malignancy. PHYSICAL EXAMINATION GENERAL: Elderly male, not in any acute distress. VITAL SIGNS: His blood pressure 157/88, heart rate 108, respiratory rate 20, temperature 97.4. HEENT: Pupils are equal and reactive to light. Oral mucosa and nasal mucosa normal. NECK: Supple. JVP not raised. CHEST: Air entry equal bilaterally. No rhonchi. CARDIOVASCULAR: S1-S2 normal. ABDOMEN: Soft. Nondistended. Bowel sounds are present. EXTREMITIES: No edema. His right hand is in a cast. LABORATORY DATA WBC count 6.5, hemoglobin 13.1, hematocrit 39.6, MCV 86, platelet count 188. Sodium 137, chloride 105, CO2 21, BUN 10. Creatinine 0.88. IMAGING His x-ray of the hand shows fifth metacarpal fracture. IMPRESSION 1. 1.3 cm right upper lobe nodule concerning for malignancy. 2. Encephalopathy. 3. History of fall. 4. Hypertension. 5. Diabetes mellitus. 6. Right fifth metacarpal fracture. PLAN I discussed with the patient, his and nephew and niece at the bedside the patient is scheduled for CT-guided biopsy of the lung. We will continue antibiotic. Neurological workup is underway. Further treatment will depend on the course in the hospital. Thank you Dr. Radha Cox for this consultation. MD JESUS Dean/KRISTINE /6:03 PM /6:14 PM
[2017-06-25 20:00] VITALS: BP 161/91; PULSE 101; RESP 20; TEMP 100.2; O2SAT 92
[2017-06-25] MEDS: ATORVASTATIN 20 MG TAB PO SCH (20:16)
[2017-06-25] MEDS: ACETAMINOPHEN 325 MG TAB PO PRN (23:09)
[2017-06-26] VITALS (11 sets, daily range): BP systolic 113–147; BP diastolic 81–93; PULSE 81–111; RESP 17–20; TEMP 97.1–99.4; O2SAT 93–98
[2017-06-26] MEDS: VANCOMYCIN 1,000 MG/NS 250 ML IV SCH ×4 (00:16→14:39)
[2017-06-26] MEDS ORDERED: CHLORHEXIDINE GLUCONATE 2 % 1 PACK (2 CLOTHS) TOPICAL PRN (01:30)
[2017-06-26] MEDS ORDERED: POVIDONE IODINE 5% (ANTISEPSIS KIT) 4 APPLICATIONS EACH NARE PRN (01:30)
[2017-06-26] MEDS ORDERED: LACTATED RINGER'S 1000 ML IV PRN (01:30)
[2017-06-26] MEDS ORDERED: SODIUM CHLORID 0.9% 500 ML IV PRN (01:30)
[2017-06-26 06:07] LABS: CREATININE 1.07 MG/DL (0.60-1.30)
[2017-06-26] MEDS: LISINOPRIL 20 MG TAB PO SCH (07:58)
[2017-06-26] MEDS: SODIUM CHLORIDE 0.9% FLUSH 10 ML FLUSH IV FLUSH SCH ×2 (07:58→22:01)
[2017-06-26] MEDS: INSULIN ASPART SUPPLEMENTAL SCALE SQ SCH ×4 (07:58→22:04)
--- NOTE | 2017-06-26 09:28 | EKG ---
Date Performed: 06/26/2017 Time Performed: 07:17:27 PTAGE: 72 years EKG: Sinus rhythm NONSPECIFIC T-WAVE ABNORMALITY BORDERLINE ECG NO PREVIOUS TRACING DOCTOR: Alfa Archer Interpretating Date/Time 06/26/2017 09:28:12
[2017-06-26] MEDS ORDERED: LIDOCAINE HCL 1% 20 ML VIAL ONE (09:43)
[2017-06-26] MEDS ORDERED: INFLUENZA VIRUS VACCINE (QUADRIVALENT) 0.5 ML SYR IM ONE (10:00)
[2017-06-26] MEDS ORDERED: PNEUMOCOCCAL POLYVALENT INJ 25 MCG/0.5 ML SYR IM ONE (10:00)
[2017-06-26] MEDS ORDERED: MIDAZOLAM HCL 2 MG/2 ML VIAL ONE (10:04)
--- NOTE | 2017-06-26 11:56 | RADRPT ---
EXAM DATE/TIME: 06/26/2017 11:20 [facility] COMPARISON: No previous studies available for comparison. INDICATIONS : Post lung biopsy. MEDICAL HISTORY : None. SURGICAL HISTORY : None. ENCOUNTER: Initial ACUITY: 1 day PAIN SCORE: Non-responsive. LOCATION: Right chest FINDINGS: There is no evidence of pneumothorax status post right lung biopsy. Some patchiness is noted within t he right upper lung field likely related to post biopsy hemorrhage. The heart is mildly prominent. Th e left lung is clear. CONCLUSION: 1. No evidence of pneumothorax status post right lung biopsy. 2. Some patchiness within the right upper lung field likely related to post biopsy hemorrhage. Pablo Flores MD on June 26, 2017 at 11:52 Board Certified Radiologist. This report was verified electronically.
[2017-06-26 13:01] LABS: BICARBONATE 23.4 MEQ/L (21.0-32.0); CALCIUM 8.9 MG/DL (8.5-10.1); CREATININE 0.97 MG/DL (0.60-1.30); MAGNESIUM 2.1 MG/DL (1.5-2.5)
--- NOTE | 2017-06-26 13:14 | RADRPT ---
EXAM DATE/TIME: 06/26/2017 10:24 [facility] COMPARISON: No previous studies available for comparison. INDICATIONS : Right lung mass. SEDATION TIME: 30 minutes BIOPSY SITE: Right posterior chest. MEDICATION(S): 1.) 1.5 mg midazolam (Versed) IV 2.) 75 mcg fentanyl (Sublimaze) IV DEVICE(S): 1.) 19 gauge micropuncture introducer 2.) 20 gauge Temno core biopsy needle MEDICAL HISTORY : Hypertension. Diabetes mellitus type 2. SURGICAL HISTORY : Appendectomy. ENCOUNTER: Initial ACUITY: 1 day PAIN SCORE: 0/10 LOCATION: Right chest A total of two core specimen(s) were obtained and sent to the laboratory for pathologic evaluation. PROCEDURE: 1. CT guided lung biopsy. Prior to the procedure informed consent was obtained. Any appropriate prior imaging studies were rev iewed. Using automated exposure control and adjustment of the mA and/or kV according to patient size, radiation dose was kept as low as reasonably achievable to obtain optimal diagnostic quality images. DICOM format image data is available electronically for review and comparison. The site was prepped in a sterile fashion. Full sterile technique was used, including cap, mask, nicole rile gloves and gown and a large sterile sheet. Hand hygiene and 2% chlorhexidine and/or betadine/al cohol prep was utilized per protocol for cutaneous antisepsis. The skin and subcutaneous tissues wer e infiltrated with local anesthetic solution. With CT guidance the previously identified target was localized. Biopsy was performed using the presc ribed needle as above. Adequate hemostasis was obtained with compression at the puncture site. Follow-up CT scan reveals no pneumothorax. Conscious sedation was performed with the prescribed dosages and duration as above in the presence of an independent trained radiology nurse to assist in the monitoring of the patient. EKG and oximetry remained stable throughout the procedure. The patient tolerated the procedure well and there were no complications. The patient was sent to Radiology Outpatient Unit in stable condition. CONCLUSION: Uncomplicated CT guided biopsy. Pablo Flores MD on June 26, 2017 at 13:12 Board Certified Radiologist. This report was verified electronically.
--- NOTE | 2017-06-26 13:23 | MB ---
cc: MEAGAN NARAYANAN MD DATE OF CONSULTATION 06/26/[address] Cox REASON Sepsis. HISTORY OF PRESENT ILLNESS This is a 72-year-old male who presented to the emergency department after several falls. The patient fractured his right wrist during the fall. He reportedly felt very weak and was falling. He was brought by family for evaluation. He was found to have a temperature of 100.1 degrees and elevated heart rate. The patient was evaluated and found to have a right upper lung nodule. His temperature daniela to 102 degrees on the evening of 06/24/2017 and cultures were taken including blood and sputum. A blood culture has no growth in two days. The sputum culture has immature growth. The urinalysis was unremarkable and therefore urine culture was not performed. He was put on antibiotics. His temperature has improved. White blood cell count has remained normal. The patient was transferred here to [place] from [facility] yesterday. He underwent biopsy of the lung nodule and sample was sent for pathology. He reportedly had decreased mental status yesterday evening. However today his mentation is extremely clear. He was able to converse with me freely. He was seen by Neurology yesterday. He was noted to be somewhat lethargic yesterday evening. The patient just came back from the biopsy of the lung. He has a small amount of hemoptysis. He denies headaches, chills, nausea or shortness of breath. He has family members in the room who state that he looks better them. PAST MEDICAL HISTORY 1. Hypertension. 2. Diabetes mellitus. 3. Hyperlipidemia. 4. History of appendectomy. ALLERGIES No known drug allergies. MEDICATIONS 1. Zithromax. 2. Vancomycin. 3. Ceftriaxone. 4. Norvasc. 5. Prinivil. 6. Insulin. 7. Lipitor. 8. [place] 5 p.r.n. SOCIAL HISTORY The patient is . No tobacco. The patient reportedly drinks wine red wine daily. No illicit drugs. FAMILY HISTORY Noncontributory. REVIEW OF SYSTEMS GENERAL: Significant for fever. HEAD, EARS, NOSE AND THROAT: No visual blurring or difficulty with vision. No nasal bleed. No difficulty swallowing. No soreness of the throat. RESPIRATORY: Denies cough or shortness of breath. CARDIOVASCULAR: Denies palpitation or chest pain. GASTROINTESTINAL: Denies nausea, vomiting, abdominal pain or diarrhea. GENITOURINARY: Denies urgency or frequency or dysuria. HEMATOPOEITIC: No easy bruising or bleeding. INTEGUMENTARY: No skin rash or itching. PSYCHIATRIC: No mood changes. NEUROLOGIC: Significant for weakness. PHYSICAL EXAMINATION GENERAL: This is a well-developed male who is in no acute distress. He is awake and alert and oriented. VITAL SIGNS: Temperature 97.5, BP 135/82, respirations 18, heart rate 81. HEENT: The head is atraumatic. Extraocular movements grossly intact. No icterus. Oropharynx - moist mucosa. No lesions visible. NECK: Supple without adenopathy. LUNGS: Rhonchi at the right base. HEART: Regular S1-S2. No murmurs. No rubs. No gallops. ABDOMEN: Bowel sounds present. Soft. No tenderness appreciated. No masses palpable. RECTAL: Not performed. EXTREMITIES: No clubbing or cyanosis or edema. SKIN: No rash. NEURO: No gross focal findings site. PSYCH: The patient is calm and cooperative. LABORATORY DATA WBC 6.5, platelets 188, 86% neutrophils, creatinine 1.07, BUN 68. IMPRESSION 1. Patient with fever, decreased mental status, generalized weakness along with tachycardia suggesting sepsis. 2. Abnormal sputum culture suggesting possible pneumonia as the cause of his fever. Above features suggesting sepsis as well. 3. Status post biopsy of right lung mass. 4. Altered mental status improved. RECOMMENDATIONS 1. Continue vancomycin but pay attention to the renal function. 2. Continue ceftriaxone. 3. Continue Zithromax. 4. Monitor sputum culture. 5. Follow the clinical status. Thank you for this consultation. I will monitor the patient's progress along with you and will make further recommendations upon followup. Meagan Narayanan MD FD/JAMA /12:33 PM /12:50 PM
[2017-06-26] MEDS: cefTRIAXone INJ 1,000 MG in SODIUM CHLORIDE 0.9% INJ 100 ML IV SCH (13:37)
--- NOTE | 2017-06-26 14:53 | HHI.PR ---
Subjective Remarks Follow-up for altered mental status and infection Patient stated that he was never altered. He stated that he was so weak that he wasnt able to speak and that's why people thought he was altered. His nephew is at the bedside where most of the interview was taken. His nephew stated that staff misunderstood them and that they never stated that he was altered. At the moment patient AAO 4. He stated that he feels a lot stronger. Patient was inflamed to the restroom and did not have any shortness of breathing. Per patient's nephew he is on is back to baseline. Otherwise no other complaints. Discussed case with patient's nurse. Objective Vitals Vital Signs Date Time Temp Pulse Resp B/P (MAP) Pulse Ox O2 Delivery O2 Flow Rate FiO2 06/26/17 12:00 97.5 81 17 135/82 (99) 96 06/26/17 11:46 95 18 113/81 (92) 93 06/26/17 11:16 97.7 101 18 147/93 (111) 94 06/26/17 08:00 99.4 86 18 141/90 (107) 93 06/26/17 04:11 97.3 82 18 130/84 (99) 95 06/26/17 02:49 94 06/26/17 00:00 99.1 95 20 134/86 (102) 93 06/25/17 20:00 100.2 101 20 161/91 (114) 92 06/25/17 16:31 98.7 102 19 166/94 (118) 92 I/O 06/25/17 06/25/17 06/25/17 06/26/17 06/26/17 06/26/17 07:00 15:00 23:00 07:00 15:00 23:00 Intake Total 180 ml 350 ml 400 ml 350 ml Output Total 250 ml 500 ml Balance 180 ml 100 ml -100 ml 350 ml Intake Oral 180 ml 400 ml 0 ml IV Total 350 ml 350 ml Output Urine Total 250 ml 500 ml # Voids 3 1 2 # Bowel Movements 0 0 1 Result Diagram: 06/25/17 0447 06/26/17 9767 Objective Remarks GENERAL: in NAD CARDIOVASCULAR: Regular rate and rhythm without murmurs, gallops, or rubs. RESPIRATORY: Breath sounds equal bilaterally. No accessory muscle use. GASTROINTESTINAL: Abdomen soft, non-tender, nondistended. MUSCULOSKELETAL: No cyanosis, or edema. Medications and IVs Current Medications Sodium Chloride 1,000 ml @ 1,000 mls/hr Q1H ONCE IV Last administered on at 14:52; Start 06/24/17 at 13:39; Stop 06/24/17 at 14:38; Status DC Sodium Chloride 1,000 ml @ 1,000 mls/hr Q1H ONCE IV Last administered on at 15:40; Start 06/24/17 at 13:39; Stop 06/24/17 at 14:38; Status DC Sodium Chloride 400 ml @ 1,000 mls/hr Q24M ONCE IV Last administered on at 16:59; Start 06/24/17 at 13:39; Stop 06/24/17 at 14:02; Status DC Albuterol Sulfate (Albuterol Neb) 2.5 mg ONCE ONCE NEB Last administered on 06/24/17at 15:20; Start 06/24/17 at 15:15; Stop 06/24/17 at 15:16; Status DC Piperacillin Sod/ Tazobactam Sod 100 ml @ 200 mls/hr ONCE ONCE IV Last administered on 06/24/17at 17:30; Start 06/24/17 at 15:15; Stop 06/24/17 at 15:44; Status DC Vancomycin HCl 1000 mg/Sodium Chloride 250 ml @ 250 mls/hr ONCE ONCE IV Last administered on 06/24/17at 15:40; Start 06/24/17 at 15:15; Stop 06/24/17 at 16:14; Status DC Sodium Chloride (NS Flush) 2 ml UNSCH PRN IV FLUSH FLUSH AFTER USING IV ACCESS ; Start 06/24/17 at 17:45 Sodium Chloride (NS Flush) 2 ml BID IV FLUSH Last administered on 06/26/17at 07: 58; Start 06/24/17 at 21:00 Ceftriaxone Sodium 1000 mg/ Sodium Chloride 100 ml @ 200 mls/hr Q24H IV Last administered on 06/24/17at 21:22; Start 06/24/17 at 20:00; Stop 06/25/17 at 10:54; Status DC Azithromycin 500 mg/Sodium Chloride 250 ml @ 250 mls/hr Q24H IV Last administered on 06/24/17at 18:42; Start 06/24/17 at 18:00; Stop 06/25/17 at 09:01; Status DC Albuterol/ Ipratropium (Duoneb Neb) 1 ampule Q4HR NEB PRN INH SHORTNESS OF BREATH; Start 06/24/17 at 17:45 Enoxaparin Sodium (Lovenox Inj) 40 mg Q24H SQ Last administered on 06/24/17at 18: 42; Start 06/24/17 at 18:00; Status Future Hold Acetaminophen (Tylenol) 650 mg Q4H PRN PO FEVER Last administered on 06/25/17at 23:09; Start 06/24/17 at 18:15 Dextrose (D50w (Vial) Inj) 50 ml UNSCH PRN IV PUSH HYPOGLYCEMIA-SEE COMMENTS; Start 06/24/17 at 18:15 Glucagon (Glucagon Inj) 1 mg UNSCH PRN OTHER HYPOGLYCEMIA-SEE COMMENTS; Start 06/24/17 at 18:15 Insulin Aspart (NovoLOG SUPPLEMENTAL SCALE) 1 ACHS SLIDING SCALE SQ Last administered on 06/26/17at 07:58; Start 06/24/17 at 21:00 Amlodipine Besylate (Norvasc) 10 mg DAILY PO Last administered on 06/26/17at 07: 57; Start 06/25/17 at 09:00 Atorvastatin Calcium (Lipitor) 20 mg HS PO Last administered on 06/25/17at 20:16 ; Start 06/24/17 at 21:00 Lisinopril (Prinivil) 20 mg DAILY PO Last administered on 06/26/17at 07:58; Start 06/25/17 at 09:00 Patient Own Medication PT OWN MED:TRADJENTA 5MG DAILY PO ; Start 06/25/17 at 09: 00; Status Future Hold Acetaminophen/ Hydrocodone Bitart ([place] 5-325 Mg) 1 tab Q6H PRN PO PAIN SCALE 1 TO 5; Start 06/24/17 at 20:30 Acetaminophen/ Hydrocodone Bitart ([place] 7.5-325 Mg) 1 tab Q6H PRN PO PAIN SCALE 6 TO 10 Last administered on 06/25/17at 03:51; Start 06/24/17 at 20:30 Pneumococcal Polyvalent Vaccine (Pneumovax-23 Inj) 25 mcg ONCE ONCE IM ; Start 06/26/17 at 10:00; Stop 06/26/17 at 10:01; Status DC Influenza Virus Vaccine (Flu (Quadrivalent) Vaccine Inj) 0.5 ml ONCE ONCE IM ; Start 06/26/17 at 10:00; Stop 06/26/17 at 10:01; Status DC Benzocaine/Menthol (Cepacol Extra Maria Antonia (Sugar Free)) 1 lozenge Q2HR PRN BUCCAL SORE THROAT; Start 06/25/17 at 08:45 Azithromycin (Zithromax) 500 mg DAILY@1800 PO Last administered on 06/25/17at 18: 15; Start 06/25/17 at 18:00 Ceftriaxone Sodium 1000 mg/ Sodium Chloride 100 ml @ 200 mls/hr Q12H IV Last administered on 06/26/17at 13:37; Start 06/25/17 at 12:00 Vancomycin HCl 1250 mg/Sodium Chloride 262.5 ml @ 262.5 mls/ hr Q12H IV ; Start 06/25/17 at 11:00; Status UNV Pharmacy Profile Note 0 ml @ 0 mls/hr UNSCH OTHER ; Start 06/25/17 at 11:00 Vancomycin HCl 1000 mg/Sodium Chloride 250 ml @ 250 mls/hr Q12H IV Last administered on 06/26/17at 00:16; Start 06/25/17 at 13:00 Miscellaneous Information SPECIFIC LAB TO BE DRAWN:VANCO TROUGH DATE... ONCE ONCE .XX ; Start 06/27/17 at 12:45; Stop 06/27/17 at 12:46 Lactated Ringer's 1,000 ml @ 30 mls/hr Q24H PRN IV SEE LABEL COMMENTS; Start at 01:30; Stop 06/29/17 at 01:29 Sodium Chloride 500 ml @ 30 mls/hr [id number] PRN IV SEE LABEL COMMENTS; Start 06/26/17 at 01:30; Stop 06/29/17 at 01:29 Povidone Iodine (Betadine 5% Antisepsis Kit) 1 applic EDITOR CONTINUITY AND SCRIPT PRN EACH NARE SEE LABEL COMMENTS; Start 06/26/17 at 01:30; Stop 06/29/17 at 01:29 Chlorhexidine Gluconate (Chlorhexidine 2% Cloth) 3 pack EDITOR CONTINUITY AND SCRIPT PRN TOPICAL SEE LABEL COMMENTS; Start 06/26/17 at 01:30; Stop 06/29/17 at 01:29 Lidocaine HCl (Xylocaine 1% Inj) 20 ml STK-MED ONCE .ROUTE Last administered on 06/26/17at 09:43; Start 06/26/17 at 09:43; Stop 06/26/17 at 09:44; Status DC Fentanyl Citrate (fentaNYL INJ) 100 mcg STK-MED ONCE .ROUTE Last administered on 06/26/17at 10:04; Start 06/26/17 at 10:04; Stop 06/26/17 at 10:05; Status DC Midazolam HCl (Versed Inj) 4 mg STK-MED ONCE .ROUTE Last administered on at 10:04; Start 06/26/17 at 10:04; Stop 06/26/17 at 10:05; Status DC A/P Problem List: (1) Fall ICD Code: W19.XXXA - Unspecified fall, initial encounter Status: Acute (2) Lung mass ICD Code: R91.8 - Other nonspecific abnormal finding of lung field Status: Acute (3) Sepsis ICD Code: A41.9 - Sepsis, unspecified organism Status: Acute (4) Metacarpal bone fracture ICD Code: S62.309A - Unspecified fracture of unspecified metacarpal bone, initial encounter for closed fracture Status: Acute (5) Metabolic encephalopathy ICD Code: G93.41 - Metabolic encephalopathy Assessment and Plan 72-year-old male presented with weakness, questionable altered mental status, infection Altered mental status -I revisited patient's history with patient and nephew since they denied ever complaining about altered mental status. Seems that patient difficulty talking secondary to fatigue and weakness. -Very unlikely patient was altered. -Neurologist was consulted. -CT of the brain was negative for any acute process. MRI of the brain was also negative for any acute process. -Lumbar puncture was discontinued by neurologist is very unlikely due to meningitis. Low-grade fever -Patient did not have any leukocytosis. Chest x-ray and CT scan of the chest showed suspicious lung nodule that was biopsied today. No signs of infection. UA negative. -Infectious disease consulted. -Per infectious disease continue vancomycin, Rocephin, azithromycin. -Sputum cultures pending. -Management per infectious disease. Mechanical fall -Seems to be due to fatigue/weakness. -Treatment as above. -Consult PT Lung mass -approximate 1.3 cm spiculated mass in right upper lobe,may be incidental -no tobacco or hx of ca -[employer] consulted. -Status post CT-guided biopsy today. -This can be followed as outpatient. Metacarpal bone fracture -Continue supportive care with fiberglass splint, follow up with outpatient hand surgery Problem Qualifiers (1) Fall: Qualified Codes: W19.XXXA - Unspecified fall, initial encounter (2) Sepsis: Qualified Codes: A41.9 - Sepsis, unspecified organism (3) Metacarpal bone fracture: Qualified Codes: S62.356A - Nondisplaced fracture of shaft of fifth metacarpal bone, right hand, initial encounter for closed fracture Brynn Palmer MD Jun 26, 2017 14:53
--- NOTE | 2017-06-26 16:21 | MG ---
cc: TEDDY DAIGLE M.D. Lab No: [id number] Date: 06/26/2017 Age: Sex: M Race: TECHNIQUE: 17 channel EEG. DESCRIPTION: The background rhythm reveals a symmetrical alpha rhythm frequency 8 Hz amplitude is 20 microvolts. During drowsiness there is some slowing in the theta range. There are no lateralizing features seen and no epileptiform discharges are present. Photic results in a normal driving response. INTERPRETATION: Normal EEG. MD ARISTEO Livingston/BRIANA /3:27 PM /4:01 PM
--- NOTE | 2017-06-26 17:43 | HHI.PR ---
Review/Management Daily Summary 06/26 seen early am today markedly improved, normal mentation no headaches poor recall of anything yesterday moved 4 limbs well LP held due to improvement will monitor Subjective Subjective Comments No acute events reported No headache Active Medications Current Medications Medications (Trade) Dose Ordered Sig/Ronaldo Route Start Time Stop Time Status Last Admin (NS Flush) 2 ml UNSCH PRN IV FLUSH 06/24/17 17:45 (NS Flush) 2 ml BID IV FLUSH 06/24/17 21:00 06/26/17 07:58 (Duoneb Neb) 1 ampule Q4HR NEB PRN INH 06/24/17 17:45 (Lovenox Inj) 40 mg Q24H SQ 06/24/17 18:00 Future Hold 06/24/17 18:42 (Tylenol) 650 mg Q4H PRN PO 06/24/17 18:15 06/25/17 23:09 (D50w (Vial) Inj) 50 ml UNSCH PRN IV PUSH 06/24/17 18:15 (Glucagon Inj) 1 mg UNSCH PRN OTHER 06/24/17 18:15 (NovoLOG SUPPLEMENTAL SCALE) 1 ACHS SLIDING SCALE SQ 06/24/17 21:00 06/26/17 07:58 (Norvasc) 10 mg DAILY PO 06/25/17 09:00 06/26/17 07:57 (Lipitor) 20 mg HS PO 06/24/17 21:00 06/25/17 20:16 (Prinivil) 20 mg DAILY PO 06/25/17 09:00 06/26/17 07:58 Patient Own Medication PT OWN MED:TRADJENTA 5MG DAILY PO 06/25/17 09:00 Future Hold ([place] 5-325 Mg) 1 tab Q6H PRN PO 06/24/17 20:30 ([place] 7.5-325 Mg) 1 tab Q6H PRN PO 06/24/17 20:30 06/25/17 03:51 (Cepacol Extra Maria Antonia (Sugar Free)) 1 lozenge Q2HR PRN BUCCAL 06/25/17 08:45 (Zithromax) 500 mg DAILY@1800 PO 06/25/17 18:00 06/25/17 18:15 Ceftriaxone Sodium 1000 mg/ Sodium Chloride 100 ml @ 200 mls/hr Q12H IV 06/25/17 12:00 06/26/17 13:37 Pharmacy Profile Note 0 ml @ 0 mls/hr UNSCH OTHER 06/25/17 11:00 Vancomycin HCl 1000 mg/Sodium Chloride 250 ml @ 250 mls/hr Q12H IV 06/25/17 13:00 06/26/17 14:39 Miscellaneous Information SPECIFIC LAB TO BE DRAWN:VANCO TROUGH DATE... ONCE ONCE .XX 06/27/17 12:45 06/27/17 12:46 Lactated Ringer's 1,000 ml @ 30 mls/hr Q24H PRN IV 06/26/17 01:30 06/29/17 01:29 Sodium Chloride 500 ml @ 30 mls/hr [id number] PRN IV 06/26/17 01:30 06/29/17 01:29 (Betadine 5% Antisepsis Kit) 1 applic PLATE MOLDER PRN EACH NARE 06/26/17 01:30 06/29/17 01:29 (Chlorhexidine 2% Cloth) 3 pack PLATE MOLDER PRN TOPICAL 06/26/17 01:30 06/29/17 01:29 Allergies Allergies Coded Allergies No Known Allergies (Verified Allergy, Unknown, 06/24/17) Exam I&O / VS 06/26/17 06/26/17 06/27/17 14:59 22:59 06:59 # Voids 3 # Bowel Movements 2 Vital Signs Date Time Temp Pulse Resp B/P (MAP) Pulse Ox O2 Delivery O2 Flow Rate FiO2 06/26/17 16:00 98.1 111 17 126/82 (97) 96 06/26/17 12:00 97.5 81 17 135/82 (99) 96 06/26/17 11:46 95 18 113/81 (92) 93 06/26/17 11:16 97.7 101 18 147/93 (111) 94 06/26/17 08:00 99.4 86 18 141/90 (107) 93 06/26/17 04:11 97.3 82 18 130/84 (99) 95 06/26/17 02:49 94 06/26/17 00:00 99.1 95 20 134/86 (102) 93 06/25/17 20:00 100.2 101 20 161/91 (114) 92 Objective Radiology Results Last 48 hours Impressions Lung Biopsy CT 06/26/17 0000 Signed Impressions: Service Date/Time: Monday, June 26, 2017 10:24 - CONCLUSION: Uncomplicated CT guided biopsy. Pablo Flores MD Chest X-Ray 06/26/17 0000 Signed Impressions: Service Date/Time: Monday, June 26, 2017 11:20 - CONCLUSION: 1. No evidence of pneumothorax status post right lung biopsy. 2. Some patchiness within the right upper lung field likely related to post biopsy hemorrhage. Pablo Flores MD Brain MRI 06/25/17 0000 Signed Impressions: Service Date/Time: Sunday, June 25, 2017 14:14 - CONCLUSION: 1. No evidence of acute intracranial pathology. Chronic ischemic changes as above. Arthur Johnson MD Micro and Labs Laboratory Tests Test 06/26/17 05:06 06/26/17 12:37 Creatinine 1.07 0.97 Estimat Glomerular Filtration Rate 68 76 Blood Urea Nitrogen 17 Random Glucose 178 Calcium Level 8.9 Magnesium Level 2.1 Sodium Level 137 Potassium Level 3.6 Chloride Level 104 Carbon Dioxide Level 23.4 Anion Gap 10 Date/Time Source Procedure Growth Status 06/24/17 14:35 Blood Peripheral Aerobic Blood Culture - Preliminary NO GROWTH IN 2 DAYS Resulted 06/24/17 14:35 Blood Peripheral Anaerobic Blood Culture - Preliminary NO GROWTH IN 2 DAYS Resulted 06/25/17 21:35 Sputum Expectorated Sputum Gram Stain - Final Resulted 06/25/17 21:35 Sputum Expectorated Sputum Sputum Culture - Preliminary IMMATURE GROWTH - REINCUBATE Resulted Nicholas Saldivar MD Jun 26, 2017 17:43
[2017-06-26] MEDS: AZITHROMYCIN 250 MG TAB PO SCH (17:52)
--- NOTE | 2017-06-26 19:02 | HHI.PR ---
Subjective Remarks 72 YOMale with Lung nodule, DM,HTN, Encephalopathy Sig improvement in Mental status LP cancelled had CT Guided lung bx Objective Vital Signs Vital Signs Date Time Temp Pulse Resp B/P (MAP) Pulse Ox O2 Delivery O2 Flow Rate FiO2 06/26/17 16:00 98.1 111 17 126/82 (97) 96 06/26/17 12:00 97.5 81 17 135/82 (99) 96 06/26/17 11:46 95 18 113/81 (92) 93 06/26/17 11:16 97.7 101 18 147/93 (111) 94 06/26/17 08:00 99.4 86 18 141/90 (107) 93 06/26/17 04:11 97.3 82 18 130/84 (99) 95 06/26/17 02:49 94 06/26/17 00:00 99.1 95 20 134/86 (102) 93 06/25/17 20:00 100.2 101 20 161/91 (114) 92 I/O 06/25/17 06/25/17 06/25/17 06/26/17 06/26/17 06/26/17 07:00 15:00 23:00 07:00 15:00 23:00 Intake Total 180 ml 350 ml 400 ml 350 ml Output Total 250 ml 500 ml Balance 180 ml 100 ml -100 ml 350 ml Intake Oral 180 ml 400 ml 0 ml IV Total 350 ml 350 ml Output Urine Total 250 ml 500 ml # Voids 3 1 2 3 # Bowel Movements 0 0 1 2 Result Diagram: 06/25/17 0447 06/26/17 1237 Objective Remarks GENERAL: Elderly male NAD SKIN: Warm and dry. HEAD: Normocephalic. EYES: No scleral icterus. No injection or drainage. NECK: Supple, trachea midline. No JVD or lymphadenopathy. CARDIOVASCULAR: Regular rate and rhythm without murmurs, gallops, or rubs. RESPIRATORY: Breath sounds equal bilaterally. No accessory muscle use. GASTROINTESTINAL: Abdomen soft, non-tender, nondistended. MUSCULOSKELETAL: No cyanosis, or edema. BACK: Nontender without obvious deformity. No CVA tenderness. A/P Assessment and Plan Lung Nodule, s/p bx DM HTN Encephalopathy, sig improved mental status PLAN: Check Lung bx results Monitor BS Abx per ID Stable on Tha Higginbotham MD Jun 26, 2017 19:02
[2017-06-26] MEDS: ATORVASTATIN 20 MG TAB PO SCH (22:01)
[2017-06-27] MEDS: cefTRIAXone INJ 1,000 MG in SODIUM CHLORIDE 0.9% INJ 100 ML IV SCH ×2 (00:14→12:27)
[2017-06-27] MEDS: VANCOMYCIN 1,000 MG/NS 250 ML IV SCH ×4 (00:15→13:30)
[2017-06-27 05:14] VITALS: BP 124/79; PULSE 98; RESP 18; TEMP 96.7; O2SAT 96
[2017-06-27 07:25] LABS: HEMATOCRIT 42.1 % (39.0-51.0); HEMOGLOBIN 14.7 GM/DL (13.0-17.0); MEAN CELL VOLUME 85.2 FL (80.0-100.0); MEAN CORPUSCULAR HEMOGLOBIN 29.8 PG (27.0-34.0); MEAN PLATELET VOLUME 8.3 FL (7.0-11.0); PLATELET COUNT 174 TH/MM3 (150-450); RED BLOOD COUNT 4.94 MIL/MM3 (4.50-5.90); RED CELL DISTRIBUTION WIDTH 13.9 % (11.6-17.2); WHITE BLOOD COUNT 10.4 TH/MM3 (4.0-11.0)
[2017-06-27 08:00] VITALS: BP 121/82; PULSE 88; RESP 18; TEMP 98; O2SAT 93
[2017-06-27] MEDS: INSULIN ASPART SUPPLEMENTAL SCALE SQ SCH ×2 (08:00→12:00)
--- NOTE | 2017-06-27 08:05 | HHI.PR ---
Review/Management Daily Summary 06/26 seen early am today markedly improved, normal mentation no headaches poor recall of anything yesterday moved 4 limbs well LP held due to improvement will monitor 06/27 remains alert and well oriented this am moves limbs well neck supple resolved encephalopathy will follow peripherally Subjective Subjective Comments No acute events reported No headache Active Medications Current Medications Medications (Trade) Dose Ordered Sig/Ronaldo Route Start Time Stop Time Status Last Admin (NS Flush) 2 ml UNSCH PRN IV FLUSH 06/24/17 17:45 (NS Flush) 2 ml BID IV FLUSH 06/24/17 21:00 06/26/17 22:01 (Duoneb Neb) 1 ampule Q4HR NEB PRN INH 06/24/17 17:45 (Lovenox Inj) 40 mg Q24H SQ 06/24/17 18:00 Future Hold 06/24/17 18:42 (Tylenol) 650 mg Q4H PRN PO 06/24/17 18:15 06/25/17 23:09 (D50w (Vial) Inj) 50 ml UNSCH PRN IV PUSH 06/24/17 18:15 (Glucagon Inj) 1 mg UNSCH PRN OTHER 06/24/17 18:15 (NovoLOG SUPPLEMENTAL SCALE) 1 ACHS SLIDING SCALE SQ 06/24/17 21:00 06/26/17 22:04 (Norvasc) 10 mg DAILY PO 06/25/17 09:00 06/26/17 07:57 (Lipitor) 20 mg HS PO 06/24/17 21:00 06/26/17 22:01 (Prinivil) 20 mg DAILY PO 06/25/17 09:00 06/26/17 07:58 Patient Own Medication PT OWN MED:TRADJENTA 5MG DAILY PO 06/25/17 09:00 Future Hold ([place] 5-325 Mg) 1 tab Q6H PRN PO 06/24/17 20:30 ([place] 7.5-325 Mg) 1 tab Q6H PRN PO 06/24/17 20:30 06/25/17 03:51 (Cepacol Extra Maria Antonia (Sugar Free)) 1 lozenge Q2HR PRN BUCCAL 06/25/17 08:45 (Zithromax) 500 mg DAILY@1800 PO 06/25/17 18:00 06/26/17 17:52 Ceftriaxone Sodium 1000 mg/ Sodium Chloride 100 ml @ 200 mls/hr Q12H IV 06/25/17 12:00 06/27/17 00:14 Pharmacy Profile Note 0 ml @ 0 mls/hr UNSCH OTHER 06/25/17 11:00 Vancomycin HCl 1000 mg/Sodium Chloride 250 ml @ 250 mls/hr Q12H IV 06/25/17 13:00 06/27/17 00:15 Miscellaneous Information SPECIFIC LAB TO BE DRAWN:VANCO TROUGH DATE... ONCE ONCE .XX 06/27/17 12:45 06/27/17 12:46 Lactated Ringer's 1,000 ml @ 30 mls/hr Q24H PRN IV 06/26/17 01:30 06/29/17 01:29 Sodium Chloride 500 ml @ 30 mls/hr [id number] PRN IV 06/26/17 01:30 06/29/17 01:29 (Betadine 5% Antisepsis Kit) 1 applic ICU REGISTERED NURSE PRN EACH NARE 06/26/17 01:30 06/29/17 01:29 (Chlorhexidine 2% Cloth) 3 pack ICU REGISTERED NURSE PRN TOPICAL 06/26/17 01:30 06/29/17 01:29 Allergies Allergies Coded Allergies No Known Allergies (Verified Allergy, Unknown, 06/24/17) Exam I&O / VS Vital Signs Date Time Temp Pulse Resp B/P (MAP) Pulse Ox O2 Delivery O2 Flow Rate FiO2 06/27/17 05:14 96.7 98 18 124/79 (94) 96 06/26/17 23:40 98.7 104 18 131/81 (98) 94 06/26/17 21:17 95 06/26/17 19:45 97.1 99 18 135/86 (102) 98 06/26/17 16:00 98.1 111 17 126/82 (97) 96 06/26/17 12:00 97.5 81 17 135/82 (99) 96 06/26/17 11:46 95 18 113/81 (92) 93 06/26/17 11:16 97.7 101 18 147/93 (111) 94 Objective Micro and Labs Laboratory Tests Test 06/26/17 12:37 06/27/17 05:31 Blood Urea Nitrogen 17 Creatinine 0.97 Random Glucose 178 Calcium Level 8.9 Magnesium Level 2.1 Sodium Level 137 Potassium Level 3.6 Chloride Level 104 Carbon Dioxide Level 23.4 Anion Gap 10 Estimat Glomerular Filtration Rate 76 White Blood Count 10.4 Red Blood Count 4.94 Hemoglobin 14.7 Hematocrit 42.1 Mean Corpuscular Volume 85.2 Mean Corpuscular Hemoglobin 29.8 Mean Corpuscular Hemoglobin Concent 35.0 Red Cell Distribution Width 13.9 Platelet Count 174 Mean Platelet Volume 8.3 Date/Time Source Procedure Growth Status 06/24/17 14:35 Blood Peripheral Aerobic Blood Culture - Preliminary NO GROWTH IN 2 DAYS Resulted 06/24/17 14:35 Blood Peripheral Anaerobic Blood Culture - Preliminary NO GROWTH IN 2 DAYS Resulted 06/25/17 21:35 Sputum Expectorated Sputum Gram Stain - Final Resulted 06/25/17 21:35 Sputum Expectorated Sputum Sputum Culture - Preliminary IMMATURE GROWTH - REINCUBATE Resulted Nicholas Saldivar MD Jun 27, 2017 08:05
[2017-06-27] MEDS: LISINOPRIL 20 MG TAB PO SCH (08:56)
[2017-06-27] MEDS: SODIUM CHLORIDE 0.9% FLUSH 10 ML FLUSH IV FLUSH SCH (08:57)
[2017-06-27 12:00] VITALS: BP 133/90; PULSE 100; RESP 18; TEMP 96.1; O2SAT 97
--- NOTE | 2017-06-27 12:16 | HHI.PR ---
Subjective Remarks For infection altered mental status Patient continues to be AAO 4. He has no complaints. He is very anxious to go home. Denied any shortness of breathing or cough. Patient remains afebrile. Discussed case with patient's nurse Karey. Objective Vitals Vital Signs Date Time Temp Pulse Resp B/P (MAP) Pulse Ox O2 Delivery O2 Flow Rate FiO2 06/27/17 08:00 98.0 88 18 121/82 (95) 93 06/27/17 05:14 96.7 98 18 124/79 (94) 96 06/26/17 23:40 98.7 104 18 131/81 (98) 94 06/26/17 21:17 95 06/26/17 19:45 97.1 99 18 135/86 (102) 98 06/26/17 16:00 98.1 111 17 126/82 (97) 96 I/O 06/26/17 06/26/17 06/26/17 06/27/17 06/27/17 06/27/17 07:00 15:00 23:00 07:00 15:00 23:00 Intake Total 350 ml 360 ml 710 ml Balance 350 ml 360 ml 710 ml Intake Oral 0 ml 360 ml 360 ml IV Total 350 ml 350 ml # Voids 2 3 4 # Bowel Movements 1 2 2 Result Diagram: 06/27/17 0531 06/26/17 1237 Objective Remarks GENERAL: in NAD CARDIOVASCULAR: Regular rate and rhythm without murmurs, gallops, or rubs. RESPIRATORY: Breath sounds equal bilaterally. No accessory muscle use. GASTROINTESTINAL: Abdomen soft, non-tender, nondistended. MUSCULOSKELETAL: No cyanosis, or edema. Medications and IVs Current Medications Sodium Chloride 1,000 ml @ 1,000 mls/hr Q1H ONCE IV Last administered on at 14:52; Start 06/24/17 at 13:39; Stop 06/24/17 at 14:38; Status DC Sodium Chloride 1,000 ml @ 1,000 mls/hr Q1H ONCE IV Last administered on at 15:40; Start 06/24/17 at 13:39; Stop 06/24/17 at 14:38; Status DC Sodium Chloride 400 ml @ 1,000 mls/hr Q24M ONCE IV Last administered on at 16:59; Start 06/24/17 at 13:39; Stop 06/24/17 at 14:02; Status DC Albuterol Sulfate (Albuterol Neb) 2.5 mg ONCE ONCE NEB Last administered on 06/24/17at 15:20; Start 06/24/17 at 15:15; Stop 06/24/17 at 15:16; Status DC Piperacillin Sod/ Tazobactam Sod 100 ml @ 200 mls/hr ONCE ONCE IV Last administered on 06/24/17at 17:30; Start 06/24/17 at 15:15; Stop 06/24/17 at 15:44; Status DC Vancomycin HCl 1000 mg/Sodium Chloride 250 ml @ 250 mls/hr ONCE ONCE IV Last administered on 06/24/17at 15:40; Start 06/24/17 at 15:15; Stop 06/24/17 at 16:14; Status DC Sodium Chloride (NS Flush) 2 ml UNSCH PRN IV FLUSH FLUSH AFTER USING IV ACCESS ; Start 06/24/17 at 17:45 Sodium Chloride (NS Flush) 2 ml BID IV FLUSH Last administered on 06/27/17at 08: 57; Start 06/24/17 at 21:00 Ceftriaxone Sodium 1000 mg/ Sodium Chloride 100 ml @ 200 mls/hr Q24H IV Last administered on 06/24/17at 21:22; Start 06/24/17 at 20:00; Stop 06/25/17 at 10:54; Status DC Azithromycin 500 mg/Sodium Chloride 250 ml @ 250 mls/hr Q24H IV Last administered on 06/24/17at 18:42; Start 06/24/17 at 18:00; Stop 06/25/17 at 09:01; Status DC Albuterol/ Ipratropium (Duoneb Neb) 1 ampule Q4HR NEB PRN INH SHORTNESS OF BREATH; Start 06/24/17 at 17:45 Enoxaparin Sodium (Lovenox Inj) 40 mg Q24H SQ Last administered on 06/24/17at 18: 42; Start 06/24/17 at 18:00; Status Future Hold Acetaminophen (Tylenol) 650 mg Q4H PRN PO FEVER Last administered on 06/25/17at 23:09; Start 06/24/17 at 18:15 Dextrose (D50w (Vial) Inj) 50 ml UNSCH PRN IV PUSH HYPOGLYCEMIA-SEE COMMENTS; Start 06/24/17 at 18:15 Glucagon (Glucagon Inj) 1 mg UNSCH PRN OTHER HYPOGLYCEMIA-SEE COMMENTS; Start 06/24/17 at 18:15 Insulin Aspart (NovoLOG SUPPLEMENTAL SCALE) 1 ACHS SLIDING SCALE SQ Last administered on 06/27/17at 08:00; Start 06/24/17 at 21:00 Amlodipine Besylate (Norvasc) 10 mg DAILY PO Last administered on 06/27/17at 08: 56; Start 06/25/17 at 09:00 Atorvastatin Calcium (Lipitor) 20 mg HS PO Last administered on 06/26/17at 22:01 ; Start 06/24/17 at 21:00 Lisinopril (Prinivil) 20 mg DAILY PO Last administered on 06/27/17at 08:56; Start 06/25/17 at 09:00 Patient Own Medication PT OWN MED:TRADJENTA 5MG DAILY PO ; Start 06/25/17 at 09: 00; Status Future Hold Acetaminophen/ Hydrocodone Bitart ([place] 5-325 Mg) 1 tab Q6H PRN PO PAIN SCALE 1 TO 5; Start 06/24/17 at 20:30 Acetaminophen/ Hydrocodone Bitart ([place] 7.5-325 Mg) 1 tab Q6H PRN PO PAIN SCALE 6 TO 10 Last administered on 06/25/17at 03:51; Start 06/24/17 at 20:30 Pneumococcal Polyvalent Vaccine (Pneumovax-23 Inj) 25 mcg ONCE ONCE IM ; Start 06/26/17 at 10:00; Stop 06/26/17 at 10:01; Status DC Influenza Virus Vaccine (Flu (Quadrivalent) Vaccine Inj) 0.5 ml ONCE ONCE IM ; Start 06/26/17 at 10:00; Stop 06/26/17 at 10:01; Status DC Benzocaine/Menthol (Cepacol Extra Maria Antonia (Sugar Free)) 1 lozenge Q2HR PRN BUCCAL SORE THROAT; Start 06/25/17 at 08:45 Azithromycin (Zithromax) 500 mg DAILY@1800 PO Last administered on 06/26/17at 17: 52; Start 06/25/17 at 18:00 Ceftriaxone Sodium 1000 mg/ Sodium Chloride 100 ml @ 200 mls/hr Q12H IV Last administered on 06/27/17at 00:14; Start 06/25/17 at 12:00 Vancomycin HCl 1250 mg/Sodium Chloride 262.5 ml @ 262.5 mls/ hr Q12H IV ; Start 06/25/17 at 11:00; Status UNV Pharmacy Profile Note 0 ml @ 0 mls/hr UNSCH OTHER ; Start 06/25/17 at 11:00 Vancomycin HCl 1000 mg/Sodium Chloride 250 ml @ 250 mls/hr Q12H IV Last administered on 06/27/17at 00:15; Start 06/25/17 at 13:00 Miscellaneous Information SPECIFIC LAB TO BE DRAWN:VANCO TROUGH DATE... ONCE ONCE .XX ; Start 06/27/17 at 12:45; Stop 06/27/17 at 12:46 Lactated Ringer's 1,000 ml @ 30 mls/hr Q24H PRN IV SEE LABEL COMMENTS; Start at 01:30; Stop 06/29/17 at 01:29 Sodium Chloride 500 ml @ 30 mls/hr [id number] PRN IV SEE LABEL COMMENTS; Start 06/26/17 at 01:30; Stop 06/29/17 at 01:29 Povidone Iodine (Betadine 5% Antisepsis Kit) 1 applic [employer] NUTRITION TERRITORY MANAGER PRN EACH NARE SEE LABEL COMMENTS; Start 06/26/17 at 01:30; Stop 06/29/17 at 01:29 Chlorhexidine Gluconate (Chlorhexidine 2% Cloth) 3 pack [employer]ITION TERRITORY MANAGER PRN TOPICAL SEE LABEL COMMENTS; Start 06/26/17 at 01:30; Stop 06/29/17 at 01:29 Lidocaine HCl (Xylocaine 1% Inj) 20 ml STK-MED ONCE .ROUTE Last administered on 06/26/17at 09:43; Start 06/26/17 at 09:43; Stop 06/26/17 at 09:44; Status DC Fentanyl Citrate (fentaNYL INJ) 100 mcg STK-MED ONCE .ROUTE Last administered on 06/26/17at 10:04; Start 06/26/17 at 10:04; Stop 06/26/17 at 10:05; Status DC Midazolam HCl (Versed Inj) 4 mg STK-MED ONCE .ROUTE Last administered on at 10:04; Start 06/26/17 at 10:04; Stop 06/26/17 at 10:05; Status DC A/P Problem List: (1) Fall ICD Code: W19.XXXA - Unspecified fall, initial encounter Status: Acute (2) Lung mass ICD Code: R91.8 - Other nonspecific abnormal finding of lung field Status: Acute (3) Sepsis ICD Code: A41.9 - Sepsis, unspecified organism Status: Acute (4) Metacarpal bone fracture ICD Code: S62.309A - Unspecified fracture of unspecified metacarpal bone, initial encounter for closed fracture Status: Acute (5) Metabolic encephalopathy ICD Code: G93.41 - Metabolic encephalopathy Assessment and Plan 72-year-old male presented with weakness, questionable altered mental status, infection Altered mental status -Questionable. If so seemed to resolve very quickly. -Neurologist was consulted and workup negative. -CT of the brain was negative for any acute process. MRI of the brain was also negative for any acute process. -Lumbar puncture was discontinued by neurologist is very unlikely due to meningitis. Low-grade fever -Patient did not have any leukocytosis. Chest x-ray and CT scan of the chest showed suspicious lung nodule that was biopsied today. No signs of infection. UA negative. Blood cultures negative 3 days. Steam culture also negative. -Infectious disease consulted. -Per infectious disease continue vancomycin, Rocephin, azithromycin. -Management per infectious disease. Mechanical fall -Seems to be due to fatigue/weakness. -Treatment as above. -Pending final recommendation from physical therapist. Lung mass -approximate 1.3 cm spiculated mass in right upper lobe,may be incidental -no tobacco or hx of ca -Qa Architect consulted. -Status post CT-guided biopsy today. -This can be followed as outpatient. Metacarpal bone fracture -Continue supportive care with fiberglass splint, follow up with outpatient hand surgery Discharge Planning Once patient is clear by infectious disease patient can be discharge. Problem Qualifiers (1) Fall: Qualified Codes: W19.XXXA - Unspecified fall, initial encounter (2) Sepsis: Qualified Codes: A41.9 - Sepsis, unspecified organism (3) Metacarpal bone fracture: Qualified Codes: S62.356A - Nondisplaced fracture of shaft of fifth metacarpal bone, right hand, initial encounter for closed fracture Brynn Pamler MD Jun 27, 2017 12:16
[2017-06-27] MEDS ORDERED: PHARMACY ORDERED LAB ONE (12:45)
--- NOTE | 2017-06-27 14:06 | HHI.IDPN ---
Note Infectious Disease Note Patient feels okay. Afebrile. No chills. Alert and oriented. Siting up in chair at bedside. Path on lung biopsy pending. PAST MEDICAL HISTORY 1. Hypertension. 2. Diabetes mellitus. 3. Hyperlipidemia. 4. History of appendectomy. ALLERGIES No known drug allergies. MEDICATIONS 1. Zithromax. 2. Vancomycin. 3. Ceftriaxone. OBJECTIVE: Vital Signs Date Time Temp Pulse Resp B/P (MAP) Pulse Ox O2 Delivery O2 Flow Rate FiO2 06/27/17 08:00 98.0 88 18 121/82 (95) 93 06/27/17 05:14 96.7 98 18 124/79 (94) 96 06/26/17 23:40 98.7 104 18 131/81 (98) 94 06/26/17 21:17 95 06/26/17 19:45 97.1 99 18 135/86 (102) 98 06/26/17 16:00 98.1 111 17 126/82 (97) 96 Laboratory Tests Test 06/27/17 05:31 White Blood Count 10.4 TH/MM3 Red Blood Count 4.94 MIL/MM3 Hemoglobin 14.7 GM/DL Hematocrit 42.1 % Mean Corpuscular Volume 85.2 FL Mean Corpuscular Hemoglobin 29.8 PG Mean Corpuscular Hemoglobin Concent 35.0 % Red Cell Distribution Width 13.9 % Platelet Count 174 TH/MM3 Mean Platelet Volume 8.3 FL Laboratory Tests Test 06/26/17 05:06 06/26/17 12:37 06/27/17 12:45 Creatinine 1.07 MG/DL 0.97 MG/DL Estimat Glomerular Filtration Rate 68 ML/MIN 76 ML/MIN Blood Urea Nitrogen 17 MG/DL Random Glucose 178 MG/DL Calcium Level 8.9 MG/DL Magnesium Level 2.1 MG/DL Sodium Level 137 MEQ/L Potassium Level 3.6 MEQ/L Chloride Level 104 MEQ/L Carbon Dioxide Level 23.4 MEQ/L Anion Gap 10 MEQ/L Microbiology Date/Time Source Procedure Growth Status 06/24/17 14:35 Blood Peripheral Aerobic Blood Culture - Preliminary NO GROWTH IN 3 DAYS Resulted 06/24/17 14:35 Blood Peripheral Anaerobic Blood Culture - Preliminary NO GROWTH IN 3 DAYS Resulted 06/24/17 14:30 Blood Peripheral Aerobic Blood Culture - Preliminary NO GROWTH IN 3 DAYS Resulted 06/24/17 14:30 Blood Peripheral Anaerobic Blood Culture - Preliminary NO GROWTH IN 3 DAYS Resulted 06/25/17 21:35 Sputum Expectorated Sputum Gram Stain - Final Complete 06/25/17 21:35 Sputum Expectorated Sputum Sputum Culture - Final HEAVY GROWTH NORMAL RESPIRATORY ASHLEY Complete 06/24/17 14:35 Nasal Aspirate Influenza Types A,B Antigen (KYLEIGH) - Final NEGATIVE FOR FLU A AND B ANTIGEN.... Complete PHYSICAL EXAMINATION GENERAL: No acute distress. He is awake and alert and oriented. HEENT: No icterus. Oropharynx - moist mucosa. No lesions visible. NECK: Supple without adenopathy. LUNGS: Decreased breath sounds. HEART: Regular S1-S2. No murmurs. No rubs. No gallops. ABDOMEN: Bowel sounds present. Soft. No tenderness appreciated. EXTREMITIES: No clubbing or cyanosis or edema. SKIN: No rash. NEURO: No gross focal findings site. PSYCH: Calm and cooperative. IMPRESSION 1. Fever may be related to lung mass. Negative cultures. 2. Status post biopsy of right lung mass. 3. Altered mental status improved. RECOMMENDATIONS Okay to discharge home without antibiotics from ID standpoint. Okay to stop antibiotics. Emir Narayanan MD Jun 27, 2017 14:06
[2017-06-27 14:20] LABS: VANCOMYCIN TROUGH 12.4 MCG/ML (5.0-10.0)
[2017-06-27 14:21] LABS: BICARBONATE 24.2 MEQ/L (21.0-32.0); CALCIUM 8.3 MG/DL (8.5-10.1); CREATININE 1.15 MG/DL (0.60-1.30)
[2017-06-27] MEDS ORDERED: HYDR-3516 PO (14:24)
--- NOTE | 2017-06-27 14:26 | HHI.DCPOC ---
Discharge Care Plan Diagnosis: (1) Altered mental status (2) Lung mass (3) Metacarpal bone fracture (4) Fall Goals to Promote Your Health * To prevent worsening of your condition and complications * To maintain your health at the optimal level Directions to Meet Your Goals Take your medications as prescribed Follow your dietary instruction Follow activity as directed Keep your appointments as scheduled Take your immunizations and boosters as scheduled If your symptoms worsen call your PCP, if no PCP go to Urgent Care Center or Emergency Room Smoking is Dangerous to Your Health. Avoid second hand smoke Call the 24-hour hour crisis hotline for domestic abuse at Brynn Palmer MD Jun 27, 2017 14:26
--- NOTE | 2017-06-27 14:27 | HHI.DS ---
Discharge Summary Admission Date Jun 24, 2017 at 16:52 Discharge Date: Jun 27, 2017 Admitting Diagnosis sepsis, fall, metacarpal fracture, lung mass (1) Fall ICD Code: W19.XXXA - Unspecified fall, initial encounter Diagnosis: Principal Status: Acute (2) Lung mass ICD Code: R91.8 - Other nonspecific abnormal finding of lung field Diagnosis: Principal Status: Acute (3) Metacarpal bone fracture ICD Code: S62.309A - Unspecified fracture of unspecified metacarpal bone, initial encounter for closed fracture Diagnosis: Secondary Status: Acute (4) Metabolic encephalopathy ICD Code: G93.41 - Metabolic encephalopathy Diagnosis: Principal Procedures see hospital course Brief History - From Admission This patient is a 72-year-old gentleman with diabetes and hypertension. He does not have a primary doctor. Apparently today he was at the park walking his dog and fell. He got up in complaining of some hand pain and drove himself home. He went home and fell again, his called his niece who came and they noticed that he was still weak and wobbly. He did not lose consciousness and had no chest pain or prodromal symptoms. She just felt acutely and severely weak and is giving out. Patient seen in the hospital here with shuffling gait which is unusual for the patient, weak and fatigued. He says that he has not had any recent travel and has not hit his head. He's never had this before. We 'll a fall earlier was so dramatic that he did end up with metacarpal fracture which has since been splinted by the ER MParvez. On arrival in emergency room he is febrile with tachycardia and signs of sepsis. He has been treated empirically with antibiotics as well as a recommendation for evaluation of a new right upper lobe malignancy with nodule on CT. CBC/BMP: 06/27/17 0531 06/27/17 1245 Significant Findings Laboratory Tests Test 06/24/17 14:30 06/24/17 14:45 06/24/17 17:15 06/25/17 04:47 Neutrophils (%) (Auto) 84.6 % (16.0-70.0) 86.5 % (16.0-70.0) Lymphocytes (%) (Auto) 5.4 % (9.0-44.0) 4.4 % (9.0-44.0) Monocytes (%) (Auto) 9.3 % (0.0-8.0) 8.7 % (0.0-8.0) Lymphocytes # (Auto) 0.5 TH/MM3 (1.0-4.8) 0.3 TH/MM3 (1.0-4.8) Random Glucose 156 MG/DL (74-106) 194 MG/DL (74-106) Total Protein 8.7 GM/DL (6.4-8.2) Sodium Level 135 MEQ/L (136-145) Estimat Glomerular Filtration Rate 73 ML/MIN (>89) 85 ML/MIN (>89) Lactic Acid Level 2.2 mmol/L (0.4-2.0) Urine Protein 30 mg/dL (NEG-TRACE) Urine Glucose (UA) 100 mg/dL (NEG) Urine Ketones TRACE mg/dL (NEG) Urine Occult Blood MOD (NEG) Calcium Level 8.1 MG/DL (8.5-10.1) Potassium Level 3.1 MEQ/L (3.5-5.1) Test 06/25/17 11:50 06/26/17 05:06 06/26/17 12:37 06/27/17 05:31 Estimat Glomerular Filtration Rate 68 ML/MIN (>89) 76 ML/MIN (>89) Random Glucose 178 MG/DL (74-106) Test 06/27/17 12:45 Blood Urea Nitrogen 24 MG/DL (7-18) Random Glucose 272 MG/DL (74-106) Calcium Level 8.3 MG/DL (8.5-10.1) Estimat Glomerular Filtration Rate 62 ML/MIN (>89) Vancomycin Level Trough 12.4 MCG/ML (5.0-10.0) Imaging Last Impressions Lung Biopsy CT 06/26/17 0000 Signed Impressions: Service Date/Time: Monday, June 26, 2017 10:24 - CONCLUSION: Uncomplicated CT guided biopsy. Pablo Flores MD Chest X-Ray 06/26/17 0000 Signed Impressions: Service Date/Time: Monday, June 26, 2017 11:20 - CONCLUSION: 1. No evidence of pneumothorax status post right lung biopsy. 2. Some patchiness within the right upper lung field likely related to post biopsy hemorrhage. Pablo Flores MD Brain MRI 06/25/17 0000 Signed Impressions: Service Date/Time: Sunday, June 25, 2017 14:14 - CONCLUSION: 1. No evidence of acute intracranial pathology. Chronic ischemic changes as above. Arthur Johnson MD Head CT 06/24/17 1339 Signed Impressions: Service Date/Time: Saturday, June 24, 2017 13:53 - CONCLUSION: 1. No acute abnormality seen. 2. Age-related atrophy and suspected mild small vessel ischemic change in the white matter. Jules Warren MD Hand X-Ray 06/24/17 0000 Signed Impressions: Service Date/Time: Saturday, June 24, 2017 14:07 - CONCLUSION: Fifth metacarpal fracture. Jules Warren MD Chest CT 06/24/17 0000 Signed Impressions: Service Date/Time: Saturday, June 24, 2017 15:48 - CONCLUSION: Right upper lung nodule suspicious for malignancy. Roque Patel MD PE at Discharge GENERAL: in NAD CARDIOVASCULAR: Regular rate and rhythm without murmurs, gallops, or rubs. RESPIRATORY: Breath sounds equal bilaterally. No accessory muscle use. GASTROINTESTINAL: Abdomen soft, non-tender, nondistended. MUSCULOSKELETAL: No cyanosis, or edema. Pt update on day of discharge f/u for ? infection and lung mass patient very anxious to go home and asked to go home. He stated he feels well and back to baseline. denied any SOB or cough. no fevers overnight. His at bedside during interview. Hospital Course 72-year-old male presented with weakness, questionable altered mental status, infection Altered mental status -Questionable. If so seemed to resolve very quickly. -Neurologist was consulted and workup negative. -CT of the brain was negative for any acute process. MRI of the brain was also negative for any acute process. -Lumbar puncture was discontinued by neurologist is very unlikely due to meningitis. Low-grade fever -Patient did not have any leukocytosis. Chest x-ray and CT scan of the chest showed suspicious lung nodule that was biopsied today. No signs of infection. UA negative. Blood cultures negative 3 days. sputum culture also negative. -Infectious disease consulted. -on vancomycin, Rocephin, azithromycin but d/mame on day of discharge since infectious work up negative. ID managing.. -fever most likely due to lung nodule. Mechanical fall -Seems to be due to fatigue/weakness. -Treatment as above. -PT consulted and patient able to go home safely. Lung mass -approximate 1.3 cm spiculated mass in right upper lobe,may be incidental -no tobacco or hx of ca -Head Char Filter Tank Tender consulted. -Status post CT-guided biopsy today. -f/u results as outpatient Metacarpal bone fracture -Continue supportive care with fiberglass splint, follow up with outpatient hand surgery Pt Condition on Discharge: Stable Discharge Disposition: Discharge Home Discharge Time: <= 30 minutes Discharge Instructions DIET: Follow Instructions for: Heart Healthy Diet, Diabetic Diet Activities you can perform: Regular-No Restrictions Follow up Referrals: Hand Surgery - 1 Week PCP Follow-up - 1 Week PCP Follow-up @ DR. [facility] - 1 Week with Tha Cantor MD New Medications: Hydrocodone/Acetaminophen (Hydrocodone-Acetamin 5-325 mg) 5 Mg-325 Mg Tablet 1 TAB PO Q6H PRN for moderate and severe pain, #20 TAB 0 Refills Continued Medications: Amlodipine (Amlodipine) 10 Mg Tab 10 MG PO DAILY for Blood Pressure Management, #30 TAB 0 Refills Atorvastatin (Atorvastatin) 20 Mg Tab 20 MG PO HS for Cholesterol Management, #30 TAB 0 Refills Benazepril (Benazepril) 20 Mg Tab 20 MG PO DAILY for Blood Pressure Management, #30 TAB 0 Refills Linagliptin (Tradjenta) 5 Mg Tab 5 MG PO DAILY for Blood Sugar Management, #30 TAB 0 Refills Metformin (Metformin) 1,000 Mg Tab 1000 MG PO BIDPC for Blood Sugar Management, #60 TAB 0 Refills Brynn Palmer MD Jun 27, 2017 14:27
== END 2017-06-27 17:32 | disposition home or self-care (01) | DRG 871 ==
LOC: PHED 13:09 → PHEDA 16:52 → PH3A 18:14 → N06A 06-25 16:27
PROVIDERS: ADMIT Family Medicine; ATTEND Family Medicine
PROC: 0BBK3ZX Excision of Right Lung, Percutaneous Approach, Diagnostic (ICD-10-PCS; principal; 2017-06-26)
DX: A41.9 Sepsis, unspecified organism (principal); G93.41 Metabolic encephalopathy; E11.9 Type 2 diabetes mellitus without complications; W01.0XXA Fall on same level from slipping, tripping and stumbling without subsequent striking against object, initial encounter; I10 Essential (primary) hypertension; R00.0 Tachycardia, unspecified; S62.326A Displaced fracture of shaft of fifth metacarpal bone, right hand, initial encounter for closed fracture; E78.5 Hyperlipidemia, unspecified; R29.6 Repeated falls; R47.1 Dysarthria and anarthria; R53.1 Weakness; R91.1 Solitary pulmonary nodule; R05 Cough; Z79.84 Long term (current) use of oral hypoglycemic drugs; Y92.830 Public park as the place of occurrence of the external cause; Y93.K1 Activity, walking an animal
CPT/HCPCS: 32405; 70450; 70551; 71045; 71250; 73130; 77012; 80048; 80053; 80202; 81001; 82565; 82948; 83605; 83735; 85025; 85027; 85610; 85730; 87040; 87070; 87205; 87804; 88305; 88333; 88341; 88342; 93005; 94664; 95819; 96361; 96365; J0456; J0696; J1650; J1815; J2250; J2543; J3010; J3370; J7030; J7050; J7613